=== PATIENT | male | born 1955 | race Caucasian/White ===

== ENCOUNTER 2023-04-26 11:12 | Emergency (ER) | payer MEDICARE, SELFPAY ==
[2023-04-26 11:33] VITALS: BP 137/70; PULSE 86; RESP 18; TEMP 37.3; O2SAT 97
--- NOTE | 2023-04-26 11:42 | ED.SKABFB ---
HPI - Skin/Abscess/Foreign Bdy General Chief complaint: Skin/Abscess/Foreign Body Stated complaint: Left Armpit Bump Time Seen by Provider: 04/26/23 11:43 Source: patient Mode of arrival: ambulatory Limitations: no limitations History of Present Illness HPI narrative: 68-year-old male presents with complaint of bump to left armpit for several months. States that is getting progressively larger and is more painful the last few days. Denies redness. Afebrile. Reports that to rubbing against his left upper arm causing increased annoying and and pain. Has not seen his primary care physician for this problem. All systems reviewed and negative except as noted above. Related Data Home Medications Medication Instructions Recorded Confirmed aspirin 81 mg tablet,delayed 81 mg PO DAILY 12/25/19 01/18/23 release (Adult Low Dose Aspirin) cholecalciferol (vitamin D3) 50 50 mcg PO DAILY 04/28/21 01/18/23 mcg (2,000 unit) tablet Allergies Allergy/AdvReac Type Severity Reaction Status Date / Time tetracycline Allergy Unknown Hives Verified 04/26/23 11:31 Review of Systems Review of Systems: CONSTITUTIONAL: Denies fever, chills, or sweats. EYES: Denies visual changes, redness, or discharge. ENT: Denies rhinorrhea, congestion, sore throat, or otalgia. CARDIOVASCULAR: Denies chest pain, palpitations, or edema. RESPIRATORY: Denies cough or dyspnea. GASTROINTESTINAL: Denies abdominal pain, nausea, vomiting, or diarrhea. GENITOURINARY: Denies dysuria or hematuria. SKIN: Denies rash or itching. Reports bump to left armpit. MUSCULOSKELETAL: Denies back pain, joint pain, or myalgia. NEUROLOGIC: Denies headache, numbness, or weakness. PSYCHIATRIC: Denies anxiety or depression. All other systems reviewed are negative, except as documented in HPI. [facility] Past Medical History Medical History (Updated 04/26/23 @ 12:27 by Daphney Membreno NP) Abnormal LFTs BMI 38.0-38.9,adult BMI 39.0-39.9,adult Body mass index (BMI) 40.0-44.9, adult Bruit Chronic neck pain Contact dermatitis due to plant Cough DJD (degenerative joint disease), multiple sites Elevated homocysteine Encounter for preventive health examination Encounter for routine adult health examination without abnormal findings Follow up Herpes, genital Left elbow pain Loose stools Low back pain Nasal folliculitis Neck pain On intermission coordinator drug therapy HEMANTH on CPAP Parotitis Right shoulder pain Sialoadenitis of submandibular gland Sialolith Stress Superficial thrombophlebitis Throat pain Vitamin D deficiency Family History Family History Other Family history of cardiovascular disease Social History Social History Smoking status: Former smoker Smoking end date: 10/16/09 Alcohol intake: current Lack of Transportation: YES Lack of Food: Never True Current Housing: I Have Housing Concerned About Future Housing: Decline to Answer Difficulty Paying Gas/Electric Bills: Decline to Answer Difficulty Paying for Meds: Decline to Answer Currently Unemployed: Decline to Answer Education: Don't Know Difficulty w/ Childcare or Family Care: Decline to Answer Living arrangements: with family Occupation/Education: occupation Gender identity (if verbalized by the patient): Male Comments At time of signature, agree with nursing past medical, surgical, social and family history. There is no relevant family history pertinent to the presenting complaint. Exam Narrative: GENERAL: This is a well-nourished, well-developed patient, in no apparent distress. HEAD: normocephalic, atraumatic. EYES: PERRL. Sclera clear/white. Vision is grossly intact. EARS: External ears normal NOSE: External nose normal . NECK: Neck supple, non-tender without lymphadenopathy, masses or thyromegaly. CARDIOVASCULAR: Regular rate and rhythm without m
== END 2023-04-26 12:33 | disposition home or self-care (01) ==
PROVIDERS: Emergency Provider Nurse Practitioner Family; PCP Internal Medicine
DX: L72.3 Sebaceous cyst (principal); Z87.891 Personal history of nicotine dependence; G47.33 Obstructive sleep apnea (adult) (pediatric); M15.9 Polyosteoarthritis, unspecified; Z86.72 Personal history of thrombophlebitis
CPT/HCPCS: 10060; 87070; 87075; 87205; 99213; G0463

== ENCOUNTER 2023-11-27 15:32 | Emergency (ER) | payer MEDICARE, SELFPAY ==
[2023-11-27 15:51] VITALS: BP 152/57; PULSE 80; RESP 16; TEMP 36.6; O2SAT 97
--- NOTE | 2023-11-27 16:28 | ED.EAR ---
HPI - Ear Problem General Chief complaint: Ear Stated complaint: Left Ear Irritation Time Seen by Provider: 11/27/23 16:34 Source: patient and RN notes reviewed Mode of arrival: ambulatory Limitations: no limitations History of Present Illness HPI Narrative: 68-year-old male presents with concern for ear wax impaction left ear. Reports he went to get a hearing test and was told his your had wax in it. Reports he tried to clean at home without success. He denies pain. MD Complaint: decreased hearing Related Data Home Medications Medication Instructions Recorded Confirmed aspirin 81 mg tablet,delayed 81 mg PO DAILY 12/25/19 11/27/23 release (Adult Low Dose Aspirin) cholecalciferol (vitamin D3) 100 100 mcg PO DAILY 06/06/23 11/27/23 mcg (4,000 unit) tablet multivitamin 1 tablet PO DAILY 10/06/23 11/27/23 psyllium husk 0.52 gram capsule 0.52 g PO DAILY 10/06/23 11/27/23 (Daily Fiber) Allergies Allergy/AdvReac Type Severity Reaction Status Date / Time tetracycline Allergy Unknown Hives Verified 11/27/23 16:00 Review of Systems Review of Systems: CONSTITUTIONAL: Denies malaise, chills, sweats, or fever. EYES: Denies visual changes, redness, or discharge. ENT: Denies rhinorrhea, congestion, sinus pain, and sore throat. Reports wax impaction left ear CARDIOVASCULAR: Denies chest pain, palpitations, or edema. RESPIRATORY: Denies cough. Denies dyspnea. GASTROINTESTINAL: Denies abdominal pain, nausea, vomiting, diarrhea SKIN: Denies rash or itching. MUSCULOSKELETAL: Denies myalgia. NEUROLOGIC: Denies headache. All systems reviewed & are unremarkable except as noted in HPI and below PMFSH Past Medical History Medical History (Updated 11/27/23 @ 16:44 by Alexia Zapata NP) Abnormal LFTs BMI 38.0-38.9,adult BMI 39.0-39.9,adult Body mass index (BMI) 40.0-44.9, adult Bruit Chronic neck pain Contact dermatitis due to plant Cough DJD (degenerative joint disease), multiple sites Elevated homocysteine Encounter for Medicare annual wellness exam Encounter for preventive health examination Encounter for routine adult health examination without abnormal findings Follow up Herpes, genital Left elbow pain Loose stools Low back pain Nasal folliculitis Neck pain 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 on CPAP Parotitis Right shoulder pain Sialoadenitis of submandibular gland Sialolith Stress Superficial thrombophlebitis Throat pain Vitamin D deficiency Welcome to Medicare preventive visit Family History Family History Other Family history of cardiovascular disease Social History Social History Smoking status: Former smoker Smoking end date: 10/16/09 Alcohol intake: current Lack of Transportation: YES Lack of Food: Never True Current Housing: I Have Housing Concerned About Future Housing: Decline to Answer Difficulty Paying Gas/Electric Bills: Decline to Answer Difficulty Paying for Meds: Decline to Answer Currently Unemployed: Decline to Answer Education: Don't Know Difficulty w/ Childcare or Family Care: Decline to Answer Living arrangements: with family Occupation/Education: occupation Gender identity (if verbalized by the patient): Male Comments At time of signature, agree with nursing past medical, surgical, social and family history. There is no relevant family history pertinent to the presenting complaint Exam Narrative: GENERAL: Well-appearing, well-nourished, and in no acute distress. HEAD: Normocephalic EYES: PERRLA, conjunctivae clear ENT: Nares clear. Mucous membranes moist. TM pearly hines with sharp light reflex on the right, not visible on the left due to wax impaction; no tragal tenderness. Oropharynx not erythematous without lesions. Tonsils not enlarged and without exudate, no drooling, no hoarseness, no trismus, uvula midline. NECK: Supple. No lym
== END 2023-11-27 17:10 | disposition home or self-care (01) ==
PROVIDERS: Emergency Provider Nurse Practitioner; PCP Internal Medicine
DX: H61.22 Impacted cerumen, left ear (principal); Z87.891 Personal history of nicotine dependence; G47.33 Obstructive sleep apnea (adult) (pediatric); M15.9 Polyosteoarthritis, unspecified
CPT/HCPCS: 69209; 99212; G0463

== ENCOUNTER 2024-03-07 09:11 | Emergency (ER) | payer MEDICARE, SELFPAY ==
--- NOTE | 2024-03-07 09:13 | ED.EAR ---
HPI - Ear Problem General Chief complaint: Ear Stated complaint: Right Ear Irritation Time Seen by Provider: 03/07/24 09:13 Source: patient Mode of arrival: ambulatory Limitations: no limitations History of Present Illness HPI Narrative: Mitesh is a 68-year-old male patient presenting to the clinic today with complaints of right ear pain/discomfort. He reports this has been ongoing for 3-5 days now. Is having tenderness to palpation of the external ear as well as decreased hearing. Has recently started using a hearing aid in that ear-started 1 month ago. Denies any fever, chills, body aches, cough, congestion, or runny nose. Related Data Home Medications Medication Instructions Recorded Confirmed aspirin 81 mg tablet,delayed 81 mg PO DAILY 12/25/19 03/07/24 release (Adult Low Dose Aspirin) cholecalciferol (vitamin D3) 100 100 mcg PO DAILY 06/06/23 03/07/24 mcg (4,000 unit) tablet multivitamin 1 tablet PO DAILY 10/06/23 03/07/24 psyllium husk 0.52 gram capsule 0.52 g PO DAILY 10/06/23 03/07/24 (Daily Fiber) Allergies Allergy/AdvReac Type Severity Reaction Status Date / Time tetracycline Allergy Intermediate Hives Verified 03/07/24 09:29 Review of Systems Review of Systems: Pertinent positives per HPI. Patient denies any fever, chills, rash, headache, visual changes, dizziness, cough, shortness of breath, chest pain, palpitations, nausea, vomiting, diarrhea, constipation, abdominal pain, or any urinary issues. [facility] Past Medical History Medical History Abnormal LFTs BMI 38.0-38.9,adult BMI 39.0-39.9,adult Body mass index (BMI) 40.0-44.9, adult Bruit Chronic neck pain Contact dermatitis due to plant Cough DJD (degenerative joint disease), multiple sites Elevated homocysteine Encounter for Medicare annual wellness exam Encounter for preventive health examination Encounter for routine adult health examination without abnormal findings Follow up Herpes, genital Left elbow pain Loose stools Low back pain Nasal folliculitis Neck pain On [facility] drug therapy HEMANTH on CPAP Parotitis Right shoulder pain Sialoadenitis of submandibular gland Sialolith Stress Superficial thrombophlebitis Throat pain Vitamin D deficiency Welcome to Medicare preventive visit Family History Family History Mother , CVA/ASHD at 92 in 01/2024 No problems noted. Other Family history of cardiovascular disease Social History Social History Smoking status: Former smoker Smoking end date: 10/16/09 Alcohol intake: current Lack of Transportation: YES Lack of Food: Never True Current Housing: I Have Housing Concerned About Future Housing: Decline to Answer Difficulty Paying Gas/Electric Bills: Decline to Answer Difficulty Paying for Meds: Decline to Answer Currently Unemployed: Decline to Answer Education: Don't Know Difficulty w/ Childcare or Family Care: Decline to Answer Living arrangements: with family Occupation/Education: occupation Gender identity (if verbalized by the patient): Male Comments At the time of my signature, I reviewed and agree with the nursing past medical, surgical, social, and family history. There is no relevant family history pertinent to the patient complaint. Exam Narrative: General: Well-developed, obese, in no apparent distress Head: Normocephalic, atraumatic Eyes: Pupils equally round and reactive to light bilaterally, EOM intact, sclera and conjunctive clear, no discharge, lids normal Ears: TMs intact and opaque, swelling and redness noted to the left ear canal without drainage, tenderness to palpation over the right tragus and pulling of the pinna, right ear canal clear, no drainage, grossly hearing normal. Nose: Nares patent, no discharge, no inflammation, no si
[2024-03-07 09:20] VITALS: BP 129/71; PULSE 69; RESP 16; TEMP 36.8; O2SAT 98
== END 2024-03-07 09:35 | disposition home or self-care (01) ==
PROVIDERS: Emergency Provider Nurse Practitioner Family; PCP Internal Medicine
DX: H60.311 Diffuse otitis externa, right ear (principal); Z87.891 Personal history of nicotine dependence; G47.33 Obstructive sleep apnea (adult) (pediatric); E55.9 Vitamin D deficiency, unspecified; M15.9 Polyosteoarthritis, unspecified; Z79.82 Long term (current) use of aspirin
CPT/HCPCS: 99213; G0463

== ENCOUNTER 2024-12-04 09:07 | Outpatient (CLI) | payer MEDICARE, SELFPAY ==
--- NOTE | ~2024-12-04 | NM_ITS ---
EXAMINATION: NM albertina stress w perfusion DATE: 12/04/2024 11:42 INDICATION: Abnormal findings on diagnostic imaging TECHNIQUE: Rest images were obtained following intravenous administration of 9 mCi Tc99m tetrofosmin (Myoview). The patient was infused intravenously with Lexiscan (Regadenoson). Then, 30.9 mCi Tc99m te trofosmin (Myoview) was administered intravenously, and stress images were obtained in both the supin e and prone positions. Data was reconstructed into short axis and horizontal and vertical long axis S PECT images. Gated SPECT images were also obtained. COMPARISON: None. FINDINGS: There is no definite reversible or fixed perfusion abnormality to suggest ischemia or infar ction. There is normal left ventricular chamber size, wall motion and ejection fraction. Left ventr icular ejection fraction measures >70%. IMPRESSION: 1. Normal myocardial perfusion at rest and during stress. 2. Left ventricular ejection fraction measuring >70%. Reviewed, dictated and finalized at location A. ON PICKER OPERATOR
--- OUTSIDE RECORDS SUMMARY | 2024-12-04 09:14 | XMS_ITS | Clinical Summary ---
Author Organization [facility] Healthcare Address [address] [place] [address] Care Team Providers Care Comic Book Writer Name Role Phone Redd Melendrez MD Primary Care Provider [phone] Atif Florentino DPT Unavailable [phone] Allergies Active Allergy Reactions Criticality Noted Date Comments Tetracyclines Rash Medium 03/29/2018 Medications fenofibrate choline (TRILIPIX) 135 mg capsuleIndications :hypercholesterole randell Take 1 capsule (135 mg total) by mouth every morning 8 Active glimepiride (AMARYL) 2 mg tabletIndications: type 2 diabetes mellitus Take 1-2 tablets (2-4 mg total) by mouth 2 (two) times a day 2 tablet in am 1 tablet in PM 8 Active lisinopril (PRINIVIL,ZESTRIL) 20 mg tabletIndications: hypertension Take 1 tablet (20 mg total) by mouth every morning 8 Active omeprazole (PriLOSEC) 20 mg capsuleIndications :Treatment of Non-Bleeding Gastric Disorder Take 1 capsule (20 mg total) by mouth 2 (two) times a day 8 Active rosuvastatin (CRESTOR) 20 mg tabletIndications: hyperlipidemia Take 1 tablet (20 mg total) by mouth scraper loader operator before breakfast 9 Active aspirin 81 MG oral suspensionIndicati ons:heart health Take 81 mL (81 mg total) by mouth scraper loader operator before breakfast 1 Active FreeStyle Feroz 14 Day Sensor kit 1 Active icosapent ethyL (VASCEPA) 1 gram capsuleIndications :hypertriglyceride randell Take 2 capsules (2 g total) by mouth 2 (two) times a day 0 Active multivitamin capsuleIndications :Vitamin Deficiency Prevention Take 1 capsule by mouth scraper loader operator before breakfast Active Janumet XR 100-1,000 mg tablet, ER multiphase 24 hrIndications:type 2 diabetes mellitus Take 1 tablet by mouth every morning 2 Active niacin ER (NIASPAN) 1,000 mg CR tabletIndications: mixed hyperlipidemia Take 1 tablet (1,000 mg total) by mouth nightly 2 Active acetaminophen (TYLENOL) 500 mg tablet Take 2 tablets (1,000 mg total) by mouth every 6 (six) hours as needed for pain Active ibuprofen (ADVIL,MOTRIN) 200 mg tab/cap Take 2 tablet/capsule (400 mg total) by mouth every 6 (six) hours as needed for pain Active Farxiga 10 mg tabletIndications: type 2 diabetes mellitus Take 1 tablet (10 mg total) by mouth every morning 3 Active Ozempic 2 mg/dose (8 mg/3 mL) pen injector injectionIndicatio ns:type 2 diabetes mellitus Inject 2 mg under the skin once a week Fridays 3 Active cholecalciferol (Vitamin D3) 400 unit capsule Take 1 tablet/capsule (400 Units total) by mouth every morning Active OneTouch Ultra Test strip 3 (three) times a day 3 Active OneTouch Ultra2 Meter misc 3 (three) times a day 3 Active rosuvastatin (CRESTOR) 40 mg tablet Take 1 tablet (40 mg total) by mouth daily 3 Active OneTouch Delica Plus Lancet 33 gauge misc 3 (three) times a day 3 Active azelastine (ASTELIN) 137 mcg (0.1 %) nasal spray Administer 2 sprays into each nostril 2 (two) times a day 4 Active sildenafiL (VIAGRA) 100 mg tablet 4 Active Active Problems Problem Noted Date Diagnosed Date Rupture of left distal biceps tendon 03/17/2023 Neck pain on left side 09/22/2022 Arthritis of right acromioclavicular joint 08/01 Overview (08/01/2022): Added automatically from request for surgery [id number] Subacromial bursitis of right shoulder joint Overview (08/01/2022): Added automatically from request for surgery [id number] Traumatic incomplete tear of right rotator cuff 08/01/2022 Overview (08/01/2022): Added automatically from request for surgery [id number] History of colon polyps 05/28/2021 Overview (05/28/2021): Added automatically from request for surgery [id number] Screening for malignant neoplasm of colon 2020 Overview (05/28/2021): Added automatically from request for surgery [id number] Osteoarthritis of left knee 01/02/2018 Osteoarthritis of right knee 11/07/2017 Abscess of axilla 12/15/2016 Knee pain 06/29/2015 Arthritis 05/08/2012 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 Hypertension 05/08/2012 Hiatal hernia 05/08/2012 Dizziness 05/08/2012 Cervical radiculopathy 04/25/2012 Diabetes mellitus 04/25/2012 Herniated cervical intervertebral disc 2 Sebaceous cyst 07/28/2011 Encounters Date Type Department Care Team Description 11/08/2024 Telephone [facility] Cardiology [address] [place] [address] [place] [address] Anila Roberts New Patient from Last 3 Months Immunizations Immunization Administration Dates Next Due Influenza, Unspecified 10/14/2013,08/27/2012 Pfizer SARS-CoV-2 Monovalent Vaccination (12+ Yrs) PURPLE 08/07/2021 ZOSTER Recombinant 03/31/2023,12/23/2022 Surgical History Surgery Date Site/Laterality Comments COLONOSCOPY CYST REMOVAL 10/16/2016 - 10/15/2017 sebacious cyst left chest NV ALEGRIA W/O FACETEC FORAMOT/DSC / VRT SGM CRV 10/16/2008 - 10/15/2009 Laminectomy Lumbar - (Added by TW Conv) FLUORO GUIDED ASPIRATION OR INJECTION INTERMEDIATE JOINT RIGHT 11/05/2020 Right TOTAL KNEE ARTHROPLASTY 10/16/2017 - 10/15/2018 Right FLUORO GUIDED INJECTION SHOULDER RIGHT 11/25/2021 Right VASECTOMY 10/16/1993 - 10/15/1994 FINGER SURGERY 10/16/2021 - 10/15/2022 trigger finger injection JOINT REPLACEMENT SPINE SURGERY SHOULDER SURGERY 08/16/2022 - 09/14/2022 Medical History Medical History Date Comments Diabetes mellitus (HCC) not insu olivia dependent Hypertension HEMANTH (obstructive sleep apnea) us ing cpap Hiatal hernia not bothering pt at this time Low testosterone Hyperlipidemia GERD (gastroesophageal reflux disease) well controlled Arthritis 10/16/2011 ELY SHOSHONE (hard of hearing) no aids Tinnitus Clotting disorder (CMS/HCC) (HCC) PT DENIES Family History Medical History Relation Name Comments Crohn's disease Daughter Family histo ry of Crohn's disease - (Added by TW Conv) Aortic aneurysm Father Arthritis Mother Izabela Diabetes Mother Izabela Heart attack Mother Izabela Heart disease Mother Izabela Family history of cardiac disorder - (Added by TW Conv) Stroke Mother Izabela Diabetes Other 1 Diabetes Mellit us - (Added by TW Conv) Heart disease Other 2 Heart Disease - (Added by TW Conv) Hypertension Other 3 Hypertension - (Added by TW Conv) Stroke Other 4 Stroke Syndrome - (Added by TW Conv) Diabetes Other 5 Family history of diabetes mellitus - (Added by TW Conv) Diabetes Son Geovani Cardona Family history of diabetes mellitus - (Added by TW Conv) Relation Name Status Comments Daughter Father Mother Izabela Alive Other 1 Other 2 Other 3 Other 4 Other 5 Son Geovani Cardona Social History Tobacco Use Types Packs/Day Years Used Date Smoking Tobacco: Former Cigarettes 0.3 38 0 10/16/1965 - 10/16/2003 Cigars Smokeless Tobacco: Never Tobacco Cessation:Counseling Given: Not Answered Comments:Occasional cigar Alcohol Use Standard Drinks/Week Comments Yes 2 (1 standard drink = 0.6 oz pur e alcohol) Occasionally AUDIT-C Answer Date Recorded Q1: How often do you have a drink containing alc ohol? Monthly or less 03/17/2023 Q2: How many drinks containi ng alcohol do you have on a typical day when you are drinking? 7 to 9 03/17/2023 Q3: How often do you have si x or more drinks on one occasion? Less than monthly 03/17/2023 PHQ-2 Answer Date Recorded PHQ-2 Total Score (If total score is 3 or more points, staff should administer the PHQ-9) 0 12/30/2021 Personal Safety Answer Date Recorded Have you ever been in or are you currently in a harmful physical or emotional relationship or is someone making you feel afraid or unsafe? Denies 03/22/2023 Sex and Gender Information Value Date Recorded Sex Assigned at Not on file Legal Sex Male 10:11 PM PROCESSES CHEMICAL DESIGN ENGINEER Gender Identity Male 06/03/2019 6:56 AM CDT Sexual Orientation Choose not to disclose 2021 10:22 AM PROCESSES CHEMICAL DESIGN ENGINEER Obstetrics History Last Filed Vital Signs Vital Sign Reading Time Taken Comments Blood Pressure 147/67 03/22/2023 12:30 PM CDT Pulse 66 03/22/2023 12:40 PM CDT Temperature 36.5 C (97.7 F) 03/22/2023 11:31 AM CDT Respiratory Rate 14 03/22/2023 12:4 0 PM CDT Oxygen Saturation 93% 03/22/2023 12: 40 PM CDT Inhaled Oxygen Concentration - - Weight 128.2 kg (282 lb 9.6 oz) 03/22/2023 8:50 AM CDT Height 184.2 cm (6' 0.5 ) 03/22/2023 8:50 AM CDT Body Mass Index 37.8 03/22/2023 8:50 AM CDT Plan of Treatment Health Maintenance Due Date Last Done Comments Albumin Creatinine Ratio, Urine 1955 Hepatitis C Screening 1955 Dilated Eye Exam 1955 Foot Exam 1955 Pneumococcal vaccine 65+ (1 of 2 - PCV) 1959 DTaP/Tdap/Td Vaccine (1 - Tdap) 1964 Hepatitis B Screening 1971 Abdominal Aortic Aneurysm (A AA) Screen 2018 Well Visit 65+ 2018 Depression Screening 12/30/2022 12/30/2021, 12/31/19 22 Hemoglobin A1C 01/18/2023 07/20/2022, 01/14, 04/23/2021, Additional history exists Lipid Panel 07/20/2023 07/20/2022, 01/14, 04/23/2021, Additional history exists eGFR 07/20/2023 07/20/2022, 01/28/2022 Fall Risk Assessment 03/22/2024 03/22/2023 Covid-19 Vaccine (2023-2 5 season) 2024 08/07/2021, 11/25/2020, 11/04/2020 Influenza Vaccine (#1) 2024 10/14/2013, 2011 Colon Cancer Screening-Colonoscopy 08/20/2031 08/20/2021 Prostate Cancer Screening-PSA Discontinued , 05/11/2020, 05/07/2019, Additional history exists Colon Cancer Screening-CT Colonography Discontinued 08/20/2021 Colon Cancer Screening-DNA Stool Discontinued 08/20/20 Colon Cancer Screening-FIT Discontinued 08/20/2021 Colon Cancer Screening-Sigmoidoscopy Discontinued 08/20/2021 Zoster Vaccine Completed 03/31/2023, 12/23/2022 Medical Devices Implanted Type Area Application Infrastructure Engineer Device Identifier Shelf Expiration Date Model / Serial / Lot [employer] 6197-9-010 Simplex P Full Dose Radiopaque Preblend Cement Bone Tobramycin - [id number] Implanted:Qty: 1 on 05/04/2018 by Jericho Henderson MD at [facility] [id number] 06/15/2019 6197-9-01 0 / / [employer] 6191-1-010 Simplex P Radiopaque Full Dose Cement Bone Sterile - [id number] Implanted:Qty: 1 on 05/04/2018 by Jerciho Henderson MD at [facility] [employer] [id number] 07/15/2020 6191-1-01 0 / / [employer] [id number] Evolution Mp Keel Right 7 Standard Baseplate Tibial Nonporous - [id number] Implanted:Qty: 1 on 05/04/2018 by Jericho Henderson MD at [facility] [employer] 01/30/2026 [id number] / / [employer] [id number] Evolution Mp 12mm Cruciate Substitute Knee Right 7 Standard - [id number] Implanted:Qty: 1 on 05/04/2018 by Jericho Henderson MD at [facility] [employer] 10/15/2021 [id number] / / [employer] [id number] Evolution Mp Primary Cruciate Retaining Cruciate Sustain Knee - [id number] Implanted:Qty: 1 on 05/04/2018 [facility] 09/01/2025 [id number] / / [employer] [id number] Advance 38mm 10mm 3 Peg Onlay Component Patellar All Poly - [id number] Implanted:Qty: 1 on 05/04/2018 by Jericho Henderson MD at [facility] 05/08/2025 [id number] / / [employer] Corkscrew Fiberwire 3.5mm 12mm Self Tap Eyelet Handle Windows Application Packager [id number] - [id number] Implanted:Qty: 1 on 03/22/2023 by Blake Jackson MD at [facility] [place] Left: Arm [employer] 10/15/2027 [id number] / / [id number] [employer] Corkscrew Fiberwire 3.5mm 12mm Self Tap Eyelet Handle Windows Application Packager [id number] - [id number] Implanted:Qty: 1 on 03/22/2023 by Blake Jackson MD at [facility] [place] Left: Arm [employer] 10/15/2027 [id number] / / [id number] Procedures Procedure Name Priority Date/Time Associated Diagnosis Comments EGFR Routine 07/20/2022 8:09 AM CDT HEMOGLOBIN A1C Routine 07/20/2022 8:09 AM CDT LIPID PANEL Routine 07/20/2022 8:09 AM CDT COLONOSCOPY 08/20/2021 11:29 AM CDT PSA DIAGNOSTIC Routine 06/07/2021 5:05 PM CDT from Last 3 Months or Most Recently Relevant to Health Maintenance Results * (ABNORMAL) eGFR (07/20/2022 8:09 AM CDT) eGFR 82(L) 90 - 130 mL/min/1. 73 m2 [facility] Comment: Interpretive Data Reference Interval Normal >/= 90 mL/min/1.73m2 Mildly decreased* 60 - 89 mL/min/1.73m2 Mildly to moderately decreased 45 - 59 mL/min/1.73m2 Moderately to severely decreased 30 - 44 mL/min/1.73m2 Severely decreased 15 - 29 mL/min/1.73m2 Kidney Failure < 15 mL/min/1.73m2 *Relative to young adult level Estimated glomerular filtration rate is determined by the 2020 CKD-EPI equation recommended by the National Kidney Foundation (A Unifying Approach to GFR Estimation: Recommendations of the NKF-ASK Task Force on Reassessing the Inclusion of Race in Diagnosing Kidney Disease, JASN 2020). The CKD-EPI equation should not be used for patients with unstable renal function and has not been validated in children and those over 70. Current interpretive data was last reviewed 2021. Blood 07/20/2022 8:09 AM CDT 07/20/2022 9:38 AM CDT Redd Melendrez MD LAB BLOOD ORDERABLES Final Re sult [facility] [address] [facility] Department of Laboratories [place], [place] [id number] * (ABNORMAL) Hemoglobin A1c (07/20/2022 8:09 AM CDT) Hgb A1C 8.2(H) 4.0 - 5.6 % [facility] Estimated Average Glucose 189 mg/dL [facility] Comment: The ADA recommends reporting an estimated Average Glucose (eAG) with all Hemoglobin A1c results using the equation derived from a study of 507 normal and diabetic adults. Minority populations were underrepresented and children were not included. (Diabetes Care 2020; 43(S1): S66-S76). The eAG is not equivalent to a fasting glucose. Blood 07/20/2022 8:09 AM CDT 07/20/2022 9:40 AM CDT us Redd Melendrez MD LAB BLOOD ORDERABLES Final Re sult [facility] [address] [facility] [place] [address] * (ABNORMAL) Lipid panel (07/20/2022 8:09 AM CDT) Cholesterol 157 30 - 199 mg/dL [facility] Comment: Interpretive Data Ages < or = 19 years Acceptable: <170 mg/dL Borderline high: 170-199 mg/dL High: >or= 200 mg/dL Ages > or = 20 years Desirable: <200 mg/dL Borderline high: 200-239 mg/dL High: >or= 240 mg/dL Literature References: 1. Expert Panel on Integrated Guidelines for Cardiovascular Health and Risk Reduction in Children and Adolescents. Pediatrics 2011;128:S213 2. NCEP Expert Panel. Circulation 2004;110:227 Current Interpretive Data was last revised on 2018. Triglycerides 196(H) <=149 mg/dL [facility] Comment: Interpretive Data Ages < or = 9 years Acceptable: <75 mg/dL Borderline high: 75-99 mg/dL High: >or= 100 mg/dL Ages 10 to 20 years Acceptable: <90 mg/dL Borderline high: 90-129 mg/dL High: >or= 130 mg/dL Ages > or = 20 years Desirable: <150 mg/dL Borderline high: 150-199 mg/dL High: 200-499 mg/dL Very high: >or= 499 mg/dL Literature References: 1. Expert Panel on Integrated Guidelines for Cardiovascular Health and Risk Reduction in Children and Adolescents. Pediatrics 2011;128:S213 2. NCEP Expert Panel. Circulation 2004;110:227 Current Interpretive Data was last revised on 2018. HDL 33(L) >=40 mg/dL [facility] Comment: Interpretive Data Ages < or = 19 years Acceptable: >45 mg/dL Borderline low: 40-45 mg/dL Low: <40 mg/dL Ages > or = 20 years Desirable: >or= 60 mg/dL Low: <40 mg/dL Literature References: 1. Expert Panel on Integrated Guidelines for Cardiovascular Health and Risk Reduction in Children and Adolescents. Pediatrics 2011;128:S213 2. NCEP Expert Panel. Circulation 2004;110:227 Current Interpretive Data was last revised on 2018. LDL, calculated 85 <=129 mg/dL [facility] Comment: Interpretive Data Ages < or = 19 years Acceptable: <110 mg/dL Borderline high: 110-129 mg/dL High: >or= 130 mg/dL Ages > or = 20 years Optimal: <100 mg/dL Near optimal: 100-129 mg/dL Borderline high: 130-159 mg/dL High: >160 mg/dL Literature References: 1. Expert Panel on Integrated Guidelines for Cardiovascular Health and Risk Reduction in Children and Adolescents. Pediatrics 2011;128:S213 2. NCEP Expert Panel. Circulation 2004;110:227 Current Interpretive Data was last revised on 2018. Non-HDL Cholesterol 124 mg/dL [facility] Comment: Interpretive Data Ages < or = 19 years Acceptable: <120 mg/dL Borderline high: 120-144 mg/dL High: >145 mg/dL Ages > or = 20 years When triglycerides are >200 mg/dL, Non-HDL cholesterol is a secondary target of therapy with treatment goals that are 30 mg/dL greater than the LDL cholesterol target. Literature References: 1. Expert Panel on Integrated Guidelines for Cardiovascular Health and Risk Reduction in Children and Adolescents. Pediatrics 2011;128:S213 2. NCEP Expert Panel. Circulation 2004;110:227 Current Interpretive Data was last revised on 2018. Chol/HDL ratio 5 [facility] Blood 07/20/2022 8:09 AM CDT 07/20/2022 9:38 AM CDT us Redd Melendrez MD LAB BLOOD ORDERABLES Final Re sult [facility] Department [place] [address] * COLONOSCOPY (08/20/2021 11:29 AM CDT) Anatomical Region Laterality Modality Other Narrative Procedure Note Blake Gonzáles MD - 08/20/2021 11:29 AM CDT ENDOSCOPY LAB Patient Name: Geovani Cardona Procedure Date: 08/20/2021 11:29 AM Date of : 1955 Admit Type: Outpatient Age: 66 Gender: Male Attending MD: Blake Gonzáles M.D. Room: [facility] ENDOSCOPY ROOM 02 Note Status: Finalized Procedure: Colonoscopy Indications: Screening for colorectal malignant neoplasm, Last colonoscopy: 2010 Providers: Blake Gonzáles M.D. Referring MD: Redd Melendrez M.D. Medicines: Propofol per Anesthesia Complications: No immediate complications. Estimated blood loss: Minimal. Estimated Blood Loss: Estimated blood loss was minimal. Procedure: Pre-Anesthesia Assessment: - Immediately prior to administration ofmedications, the patient was re-assessed for adequacy to receive sedatives. - Sedation was administered by an anesthesia professional. General anesthesia was attained. - The physical status of the patient wasre-assessed after the procedure. The benefits, risks and alternatives of theprocedure and sedation were discussed and informed consentwas obtained. All questions were answered. Please referto the signed informed consent document in the medical record. The scope was passed under direct vision.The [id number] was introduced through the anusand advanced to the cecum, identified by appendiceal orifice and ileocecal valve. The colonoscopy was performed with ease. The patient tolerated the procedure well. The quality of the bowelpreparation was excellent. The quality of the bowel preparation was evaluated using the BBPS (Basin BowelPreparation Scale) with scores of: Right Colon = 3, Transverse Colon = 3 and Left Colon = 3 (entire mucosa seenwell with no residual staining, small fragments of stoolor opaque liquid). The total BBPS score equals 9.Bowel prep was administered using a split dose. Findings: A 8 mm polyp was found in the transverse colon. The polyp was removed with a cold biopsy forceps. Resection and retrieval were complete. Estimated blood loss was minimal. Impression: - One 8 mm polyp in the transverse colon, removedwith a cold biopsy forceps. Resected and retrieved. Recommendation: - Await pathology results. - Repeat colonoscopy in 5 years for surveillance. Electronically signed by Dr.Matthew Eliecer M.D. Blake Gonzáles M.D. 08/20/2021 12:12:16 PM Number of Addenda: 0 Note Initiated On: 08/20/2021 11:29 AM us Blake Gonzáles MD ENDOSCOPY PROCEDURES Final R esult * PSA diagnostic (06/07/2021 5:05 PM CDT) PSA-Total 0.20 <=5.40 ng/mL [facility] Comment: Interpretive Data AGE SEX REFERENCE INTERVAL 0 minutes-150 years Female None 0 minutes-49 years Male None 50-59 years Male 0-3.90 60-69 years Male 0-5.40 70-79 years Male 0-6.20 80-150 years Male 0-6.20 Current interpretive data last revised 2018. Blood 06/07/2021 5:05 PM CDT 06/07/2021 5:16 PM CDT Redd Melendrez MD LAB BLOOD ORDERABLES Final Re sult [facility] [address] [place] [address] from Last 3 Months or Most Recently Relevant to Health Maintenance Insurance [facility] [employer] Address: [facility] [id number] [place] [address] MEDICARE [facility] Private Practice Address: [facility] [id number] [place] [address] MEDICARE MEDICARE [facility] Private Practice Address: [facility] [address] [place] [address] [address] [place] [address] MEDICARE [facility] Advance Directives For more information, please contact: [phone] * Full Code (Latest Code Status on File) Date Activated Date Inactivated Comments 08/20/2021 10:11 AM 08/20/2021 4:54 PM * Full Code Date Activated Date Inactivated Comments 05/08/2018 7:48 PM 08/20/2021 10:01 AM * Full Code Date Activated Date Inactivated Comments 05/04/2018 1:42 PM 05/05/2018 4:30 PM Care Teams Comic Book Writer Relationship Specialty Start Date End Date Redd Melendrez MD [address] [facility] [address] [place] [address] PCP - General 12/21/16 Atif Florentino DPT [address] [facility] [address] [place] [address] Physical Therapist Physical Therapy 04/22/21
--- OUTSIDE RECORDS SUMMARY | 2024-12-04 09:14 | XMS_ITS | Clinical Summary ---
Author Organization [facility] Address [address] [place] [address] Care Team Providers Care Perinatal Technician Name Role Phone Redd Aguero MD Primary Care Provider [phone] Encounters Date Type Department Care Team Description 11/12/2024 Telephone [facility] [address], [address] [id number] Lita Brown RN Results (CT Heart Screen Calcium Score) 11/07/2024 3:06 PM BANK MANAGER - 11/07/2024 11:59 PM BANK MANAGER Hospital Encounter [place] [place] [address] Redd Aguero MD Discharge Disposition: Home or Self Care (Routine Discharge) 11/07/2024 Travel from Last 3 Months Social History Tobacco Use Types Packs/Day Years Used Date Smoking Tobacco: Never Assessed Sex and Gender Information Value Date Recorded Sex Assigned at Male 11/07/2024 3:00 PM BANK MANAGER Legal Sex Male 12:29 PM BANK MANAGER Gender Identity Not on file Sexual Orientation Not on file Plan of Treatment Health Maintenance Due Date Last Done Comments Colorectal Cancer Screening Colonoscopy (10 Years) 1955 Kidney Health Evaluation 1955 Lipid Panel 1955 Diabetes: Retinopathy Eye Exam 1971 Hepatitis C 1971 DTaP, Tdap and Td Vaccines (1 - Tdap) 1972 Annual Medicare Wellness Visit 2018 Hemoglobin A1C 01/18/2023 07/20/2022, 01/14, 04/23/2021, Additional history exists COVID-19 Vaccine ( season) 2024 04/09/2024, 08/25/2023, 11/04/2022, Additional history exists Zoster Vaccines Completed 03/31/2023, 12/23/2022 RSV Immunization or 60+ Years Completed 05/26/2023 Pneumococcal Vaccine: 65+ Years Completed 08/25/2023 Influenza Adult Completed 08/01/2024, 03/2023, 09/05/2022, Additional history exists Meningococcal B Vaccine Aged Out No l onger eligible based on patient's age to complete this topic Meningococcal Vaccine Aged Out No janis adelfo eligible based on patient's age to complete this topic RSV Immunizations Under 20 Months Aged Out No longer eligible based on patient's age to complete this topic Procedures Procedure Name Priority Date/Time Associated Diagnosis Comments CT HEART SCREEN CALCIUM SCORE PROMO Routine 11/07/2024 3:30 PM BANK MANAGER Essential (primary) hypertension Mixed hyperlipidemia Type 2 diabetes mellitus without complications ([facility]) from Last 3 Months Results * CT HEART SCREEN CALCIUM SCORE (11/07/2024 3:30 PM BANK MANAGER) Anatomical Region Laterality Modality Chest Computed Tomogra phy Impressions 11/07/2024 3:41 PM BANK MANAGER =====IMPRESSION:===== Total Score: 1037 Extensive plaque, high risk, high likelihood of significant stenosis (>50%). Ordered By: REDD AGUERO Interpreted By: Lyle Loza MD, 11/07/2024 3:41 PM Narrative 11/07/2024 3:41 PM BANK MANAGER [address] [address] EXAMINATION: Multislice Helical CT Coronary Calcium Scoring REASON FOR EXAM: Screening for heart disease COMPARISON: None TECHNIQUE: Multislice helical CT images of the proximal coronary arteries with a computer generated calcification score. A dose lowering technique was used for this procedure, which may include, but is not limited to, dose reduction technique, automated exposure control, iterative reconstruction, ALARA (As Low As Reasonably Achievable), or Image Gently techniques. Results: Left main: 26.6 LAD: 655 Circumflex: 51.5 Right coronary: 305 Total Score: 1037 Comments: There is no mediastinal adenopathy, and there are no pulmonary nodules in the visualized portions of the chest. Calcium score guidelines: Total Score* Calcium Plaque [place] *Risk *Probability of significant CAD 0 No Plaque Very Low Very unlikely 1-10 Minimal Plaque Low Unlikely 11-100 Mild Plaque Moderate Low likelihood of significant stenosis <50% 101-400 Moderate Plaque Moderately High Moderate likelihood of significant stenosis (>50%) Over 400 Extensive Plaque High High likelihood of significant stenosis (>50%) The amount of coronary artery calcification correlates with the severity of coronary atherosclerosis and the probability of future significant event. Calcification is not site specific for stenosis and does not identify non-calcified atherosclerotic plaque, but rather indicates the extent of atherosclerosis in the coronary arteries overall. The score may be used as an indicator for risk factor modification or additional cardiac testing. Significant change in calcium score over time may be indicative of subsequent disease development or useful as a benchmark to assess preventative programs. Redd Aguero MD CT Edited Result - Final from Last 3 Months Insurance [facility] MEDICARE Care Teams Perinatal Technician Relationship Specialty Start Date End Date Redd Aguero MD [address] [facility] - [facility] [address] [place] [address] PCP - General INTERNAL MEDICINE 10/29/24
--- OUTSIDE RECORDS SUMMARY | 2024-12-04 09:14 | XMS_ITS | Referral Summary ---
Author Organization [facility] Healthcare Address [address] [place] [address] Care Team Providers Care Radio Time Sales Supervisor Name Role Phone Redd Melendrez MD Primary Care Provider [phone] Atif Florentino DPT Unavailable [phone] Encounters Date Type Department Care Team Description 11/08/2024 Telephone [facility] Cardiology [address] [facility] 8th [place] [address] [place] [address] Anila Roberts New Patient from Last 3 Months Allergies Active Allergy Reactions Criticality Noted Date [...] 1 tablet (20 mg total) by mouth storage garage attendant before breakfast 9 Active aspirin 81 MG oral suspensionIndicati ons:heart health Take 81 mL (81 mg total) by mouth storage garage attendant before breakfast 1 Active FreeStyle Feroz 14 Day Sensor kit 1 Active icosapent ethyL (VASCEPA) 1 gram capsuleIndications :hypertriglyceride randell Take 2 capsules (2 g total) by mouth 2 (two) times a day 0 Active multivitamin capsuleIndications :Vitamin Deficiency Prevention Take 1 capsule by mouth storage garage attendant before breakfast Active Janumet XR 100-1,000 mg [...] (08/01/2022): Added automatically from request for surgery [id number] Subacromial bursitis of right shoulder joint Overview (08/01/2022): Added automatically from request for surgery [id number] Traumatic incomplete tear of right rotator cuff 08/01/2022 Overview (08/01/2022): Added automatically from request for surgery [id number] History of colon polyps 05/28/2021 Overview (05/28/2021): Added automatically from request for surgery [id number] Screening for malignant neoplasm of colon 2020 Overview (05/28/2021): Added automatically from request for surgery [id number] Osteoarthritis of left knee 01/02/2018 Osteoarthritis of right knee 11/07/2017 Abscess of axilla 12/15/2016 Knee pain 06/29/2015 Arthritis 05/08/2012 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 Hypertension 05/08/2012 Hiatal hernia 05/08/2012 Dizziness 05/08/2012 Cervical radiculopathy 04/25/2012 Diabetes mellitus 04/25/2012 Herniated cervical intervertebral disc 2 Sebaceous cyst 07/28/2011 Immunizations Immunization Administration Dates Next Due Influenza, Unspecified 10/14/2013,08/27/2012 Pfizer SARS-CoV-2 Monovalent Vaccination (12+ Yrs) PURPLE 08/07/2021 ZOSTER Recombinant 03/31/2023,12/23/2022 Social History Tobacco Use Types Packs/Day Years [...] on file Legal Sex Male 10:11 PM SALES STOCK ASSOCIATE Gender Identity Male 06/03/2019 6:56 AM CDT Sexual Orientation Choose not to disclose 2021 10:22 AM SALES STOCK ASSOCIATE Last Filed Vital Signs Vital Sign Reading [...] 03/22/2023 8:50 AM CDT Plan of Treatment Not on file Medical Devices Implanted Type Area Freight Hustler Device Identifier Shelf Expiration Date Model / Serial / Lot [employer] 6197-9-010 Simplex P Full Dose Radiopaque Preblend Cement Bone Tobramycin - [id number] Implanted:Qty: 1 on 05/04/[facility] [id number] 06/15/2019 6197-9-01 0 / / [employer] 6191-1-010 Simplex P Radiopaque Full Dose Cement Bone Sterile - [id number] Implanted:Qty: 1 on 05/04/2018 [facility] [id number] 07/15/2020 6191-1-01 0 / / [employer] [id number] Evolution Mp Keel Right 7 Standard Baseplate Tibial Nonporous - [id number] Implanted:Qty: 1 on 05/04/2018 by Jericho Henderson MD at [facility] [employer] 01/30/2026 [id number] / / [employer] [id number] Evolution Mp 12mm Cruciate Substitute Knee Right 7 Standard - [id number] Implanted:Qty: 1 on 05/04/2018 by Jericho Henderson MD at [facility] [employer] 10/15/2021 [id number] / / [employer] [id number] Evolution Mp Primary Cruciate Retaining Cruciate Sustain Knee - [id number] Implanted:Qty: 1 on 05/04/2018 by Jericho Henderson MD at [facility] [employer] 09/01/2025 [id number] / / [employer] [id number] 38mm 10mm 3 Peg Onlay Component Patellar All Poly - [id number] Implanted:Qty: 1 on 05/04/2018 by Jericho Henderson MD at [facility] [employer] 05/08/2025 [id number] / / [employer] Corkscrew Fiberwire 3.5mm 12mm Self Tap Eyelet Handle Bridge Carpenter [id number] - [id number] Implanted:Qty: 1 on 03/22/2023 by Blake Jackson MD at [facility] Left: Arm [employer] 10/15/2027 [id number] / / [id number] [employer] Corkscrew Fiberwire 3.5mm 12mm Self Tap Eyelet Handle Bridge Carpenter Ar-1915sf - [id number] Implanted:Qty: 1 on 03/22/2023 by Blake Jackson MD at [facility] Left: Arm [employer] 10/15/2027 [id number] / / [id number] Procedures Procedure Name Priority Date/Time Associated Diagnosis [...] 90 - 130 mL/min/1. 73 m2 [facility] Comment: Interpretive Data Reference Interval [...] MD LAB BLOOD ORDERABLES Final Re sult Performing Organization Address [facility] de Phone Number [facility] Department [place] [address] * (ABNORMAL) Hemoglobin A1c (07/20/2022 8:09 AM CDT) Hgb A1C 8.2(H) 4.0 - 5.6 % [facility] Estimated Average Glucose 189 mg/dL [facility] Comment: The ADA recommends reporting an estimated Average Glucose (eAG) with all Hemoglobin A1c results using the equation derived from a study of 507 normal and diabetic adults. Minority populations were underrepresented and children were not included. (Diabetes Care 2020; 43(S1): S66-S76). The eAG is not equivalent to a fasting glucose. Blood 07/20/2022 8:09 AM CDT 07/20/2022 9:40 AM CDT Redd Melendrez MD LAB BLOOD ORDERABLES Final Re sult Performing Organization Address [facility] Co de Phone Number [facility] Department [place] [address] * (ABNORMAL) Lipid panel (07/20/2022 8:09 AM CDT) Cholesterol 157 30 - 199 mg/dL [facility] Comment: Interpretive Data Ages < or [...] revised on 2018. Triglycerides 196(H) <=149 mg/dL [facility] Comment: Interpretive Data Ages < or [...] revised on 2018. HDL 33(L) >=40 mg/dL [facility] Comment: Interpretive Data Ages < or [...] on 2018. LDL, calculated 85 <=129 mg/dL [facility] Comment: Interpretive Data Ages < or [...] revised on 2018. Non-HDL Cholesterol 124 mg/dL [facility] Comment: Interpretive Data Ages < or [...] last revised on 2018. Chol/HDL ratio 5 [facility] Blood 07/20/2022 8:09 AM CDT 07/20/2022 9:38 AM CDT us Redd Melendrez MD LAB BLOOD ORDERABLES Final Re sult [facility] Department [place] [address] * COLONOSCOPY (08/20/2021 11:29 AM CDT) Anatomical Region Laterality Modality Other Narrative Procedure Note Blake Gonzáles MD - 08/20/2021 11:29 AM CDT ENDOSCOPY LAB Patient Name: Geovani Cardona Procedure Date: 08/20/2021 11:29 AM Date of : 1955 Admit Type: Outpatient Age: 66 Gender: Male Attending MD: Blake Gonzáles M.D. Room: [facility] ENDOSCOPY ROOM 02 Note Status: Finalized Procedure: [...] The scope was passed under direct vision.The [id number] was introduced through the anusand advanced to the cecum, identified by appendiceal orifice and ileocecal valve. The colonoscopy was performed with ease. The patient tolerated the procedure well. The quality of the bowelpreparation was excellent. The quality of the bowel preparation was evaluated using the BBPS (Chester BowelPreparation Scale) with scores of: Right Colon [...] PM CDT) PSA-Total 0.20 <=5.40 ng/mL [facility] Comment: Interpretive Data AGE SEX REFERENCE INTERVAL 0 minutes-150 years Female None 0 minutes-49 years Male None 50-59 years Male 0-3.90 60-69 years Male 0-5.40 70-79 years Male 0-6.20 80-150 years Male 0-6.20 Current interpretive data last revised 2018. Blood 06/07/2021 5:05 PM CDT 06/07/2021 5:16 PM CDT us Redd Melendrez MD LAB BLOOD ORDERABLES Final Re sult [facility] Department [place] [address] from Last 3 Months or Most Recently Relevant to Health Maintenance Insurance [employer] [facility] [employer] Address: [facility] [id number] [place] [address] MEDICARE [facility] [employer] Address: [facility] [id number] [place] [address] MEDICARE MEDICARE [facility] [employer] [employer] Address: [address] [place] [address] MEDICARE [facility] Advance Directives For more information, please contact: [phone] * Full Code (Latest Code Status on File) Date Activated Date Inactivated Comments 08/20/2021 10:11 AM 08/20/2021 4:54 PM * Full Code Date Activated Date Inactivated Comments 05/08/2018 7:48 PM 08/20/2021 10:01 AM * Full Code Date Activated Date Inactivated Comments 05/04/2018 1:42 PM 05/05/2018 4:30 PM Care Teams Radio Time Sales Supervisor Relationship Specialty Start Date End Date Redd Melendrez MD [address] [facility] [address] INTER[address] MEDICINE [place], [place] [id number] PCP - General 12/21/16 Atif Florentino, [place] [address] [address] Physical Therapist Physical Therapy 04/22/21
--- OUTSIDE RECORDS SUMMARY | 2024-12-04 09:14 | XMS_ITS | Encounter Summary ---
Author Organization [facility] Address [address] [facility] [address] [place] [address] Phone Care Team Providers Care Aix System Administrator Name Role Phone Redd Melendrez MD Primary Care Provider [phone] Atif Florentino DPT Unavailable [phone] Reason for Visit * Reason Onset Date Comments New Patient 11/08/2024 Encounter Details Date Type Department Care Team (Late st Contact Info) Description 11/08/2024 Telephone [facility] [address] [facility] 8th [place] [address] [place] [address] Anila Roberts New Patient Social History Tobacco Use Types Packs/Day Years Used Date Smoking Tobacco: Former Cigarettes 0.3 38 0 10/16/1965 - 10/16/2003 Cigars Smokeless Tobacco: Never Comments:Occasional cigar Alcohol Use Standard Drinks/Week Comments [...] on file Legal Sex Male 10:11 PM DIGITAL CAMPAIGN MANAGER Gender Identity Male 06/03/2019 6:56 AM CDT Sexual Orientation Choose not to disclose 2021 10:22 AM DIGITAL CAMPAIGN MANAGER documented as of this encounter Miscellaneous Notes * Telephone Encounter - Anila Roberts - 11/11/2024 8:14 AM CST ... TAL CAMPAIGN MANAGER * Telephone Encounter - Anila Roberts - 11/08/2024 1:50 PM CST PT SPOUSE IS ALREADY A PT OF DR. TREJO. THEY ARE CALLING TO SEE IF HE CAN BE SCHEDULED A NEW PT? TAL CAMPAIGN MANAGER * Telephone Encounter - Anila Roberts - 11/08/2024 1:45 PM CST Diagnosis/Reason for Appointment: ELEVATED CALCIUM SCORING TEST Referring Physician: SELF Ref Ph: If Referring MD is not PCP, list specialty: Triage Questions Yes No Who/Where/When/Notes Have you ever been diagnosed with cancer, or undergone cancer treatments? [] [x] If 'Yes', Schedulefirst available with Cardio-Oncology If yes where were you treated? Have you ever seen a Retail Pharmacist in an office setting? [] [x] IF SCHEDULING PATIENT WITH MATERNAL Have you had a baby in the last year or are you ? (If yes send to Dr. Stewart for review) [] [] Have you had heart or blood pressure problems during a previous ? (If yes send to Dr. Stewart for review) [] [] Dr. Pamela Mi Patients only: Are you a hemodialysis or peritoneal dialysis patient? (If yes then patient must be referred from another MD, DO NOT SCHEDULE) [] [] Do you regularly exercise, or play any competitive or recreational sports? (If yes proceed to next question) [] [] Are your symptoms or concerns associated with this exercise or activity? (If yes schedule in [facility]) [] [] Patient History Questions Yes No Where/When/Notes Have you EVER been hospitalized for ANY cardiac issue? [] [x] Have you ever had any cardiac testing, imaging, or procedures? (Testing - echo, EKG, stress) (Imaging - Cardiac MRI, CT or calcium scoring) (Procedure - Ablation, Cardioversion, CABG, Cath) [x] [] CALCIUM SCORING TEST (1036), 11/07/2024, [facility] Have you ever had a sleep study? [x] [] Do you have a device? If yes what type? (Pacemaker, Defibrillator, Implanted Loop Recorder) [] [x] If yes, where and when was device put in? Senior Product Manager? ([employer], [employer], [place]) Appointment Date: Provider: Location: [] Confirm appt date, time, provider and location. [] Advise pt to arrive 15-20 min early. [] Advise patient to bring medications/list, photo ID and insurance card [] Advise of New Patient Packet being mailed to them. TAL CAMPAIGN MANAGER documented in this encounter Plan of Treatment Not on file documented as of this encounter Visit Diagnoses Not on filedocumented in this encounter Care Teams Aix System Administrator Relationship Specialty Start Date End Date Redd Melendrez MD [address] [facility] [address] [facility] [address] [place] [address] PCP - General 12/21/16 Atif Florentino DPT [address] [facility] [address] [place] [address] Physical Therapist Physical Therapy 04/22/21 documented as of this encounter
--- NOTE | 2024-12-04 09:16 | EST_ITS ---
Patient Info Name: Mitesh Quintero Age: 69 years : 1955 Gender: Male Ht: 72 in Wt: 278 lbs BSA: 2.58 m2 HR: 74 bpm BP: 123 / 62 mmHg Exam Date: 12/04/2024 10:04 AM Exam Location: Echo Lab Patient Status: Outpatient Admit Date: 12/04/2024 Staff Ordering Physician: Redd Melendrez MD Attending Provider: Redd Melendrez MD Exercise Technologist: Kwasi DELGADO RUST Exercise Physician: Mustapha Bee DO Exam Type: CA stress albertina w NM Study Info Indications R93.8 - Abnormal findings on diagnostic imaging of other specified body structures A regadenoson stress test was performed. Summary 1. 1. Negative lexiscan stress test for ischemic ST changes by ECG criteria. 2. 2. Stable hemodynamics throughout the test. 3. 3. Nuclear scan to follow and will be reported separately. Please correlate with it. 4. 4. Patient informed of the above results. Protocol: Lexiscan Stress ECG Details Stage: REST Duration (min): 0 min : 34 sec HR (bpm): 72 SBP (mmHg): --- DBP (mmHg): --- Stage: REST Duration (min): 16 min : 14 sec HR (bpm): 78 SBP (mmHg): 123 DBP (mmHg): 62 Stage: STAGE 1 Duration (min): 1 min : 0 sec HR (bpm): 83 SBP (mmHg): 129 DBP (mmHg): 59 Stage: RECOVERY Duration (min): 1 min : 0 sec HR (bpm): 91 SBP (mmHg): 129 DBP (mmHg): 59 Stage: RECOVERY Duration (min): 1 min : 1 sec HR (bpm): 91 SBP (mmHg): 129 DBP (mmHg): 59 Rest HR: 78 bpm Peak HR: 91 bpm Rest Sys BP: 123 mmHg Peak Sys BP: 129 mmHg Max Pred HR: 149 bpm % Max Pred HR: 61 % Target HR: 127 bpm Max RPP: 11,739 bpm*mmHg Termination Reason: Completed protocol Cardiac Symptoms: Shortness of breath Total Time: 1 min : 0 sec Rest Toth BP: 62 mmHg Peak Toth BP: 59 mmHg Total Dose: 0.4 mg Resting ECG SInus rhythm, low voltage in diffuse leads. Stress ECG No ST changes. Arrhythmias None. Report Signatures
== END 2024-12-04 09:08 | disposition home or self-care (01) ==
PROVIDERS: PCP Internal Medicine; Visit Provider Internal Medicine
DX: R93.89 Abnormal findings on diagnostic imaging of other specified body structures (principal); R07.9 Chest pain, unspecified
CPT/HCPCS: 78452; 93017; A9502; J2785

== ENCOUNTER 2025-01-13 12:51 | Outpatient (CLI) | payer MEDICARE, SELFPAY ==
--- NOTE | ~2025-01-13 | US_ITS ---
EXAMINATION: US carotid duplex BI DATE: 01/13/2025 13:46 INDICATION: Carotid occlusion. TECHNIQUE: Grayscale, color Doppler, and pulsed Doppler images of the cervical carotid arteries were obtained. The degree of vessel stenosis is placed in one of the following categories: normal, <50%, 5 0-69%, >=70% but less than near-occlusion, near-occlusion, or total occlusion. Note that percent sten osis relative to normal distal artery lumen diameter is indirectly measured from velocity measurement s as described by Reagan, et al. Radiology 2003; 229:340-346. Notes: Normal: Peak systolic velocity <125 centimeters/sec and no plaque <50%. Peak systolic velocity <125 ( EDV <40; ICA/CCA PSV ratio <2.0; used these factors only a tandem lesions or low cardiac output or co ntralateral disease) 50-69 %: PSV 125-230 (EDV 40-100; ratio 2-4) >= 70% but less than near occlusion: PSV greater than 230 (EDV > 100; ratio> 4.0) Near Occlusion: PSV that is variable; markedly narrowed lumen Occlusion: Absent flow on color/spectral Doppler and no lumen on hines scale. COMPARISON: None. FINDINGS: RIGHT: The right common carotid artery (CCA) peak systolic velocity (PSV) is 89 cm/s. The right internal car otid artery (ICA) PSV is 89 cm/s. The right ICA end-diastolic velocity (EDV) is 13 cm/s. The right IC A/CCA PSV ratio is 1.0. The external carotid artery (ECA) PSV is 150 cm/s. There is antegrade flow in the right vertebral artery. LEFT: The left CCA PSV is 102 cm/s. The left ICA PSV is 93 cm/s. The left ICA EDV is 14 cm/s. The left ICA/ CCA PSV ratio is 0.9. The ECA PSV is 133 cm/s. There is antegrade flow in the left vertebral artery. IMPRESSION: 1. Less than 50% stenosis in the right internal carotid artery by sonographic criteria. 2. Less than 50% stenosis in the left internal carotid artery by sonographic criteria. Reviewed, dictated and finalized at location A. IMPRESSION: 1. Less than 50% stenosis in the right internal carotid artery by sonographic audie lucia. 2. Less than 50% stenosis in the left internal carotid artery by sonographic neymar fam.
--- OUTSIDE RECORDS SUMMARY | 2025-01-13 14:07 | XMS_ITS | Clinical Summary ---
Author Organization [facility] Address [address] [place] [address] Care Team Providers Care Solar Sales Representative Name Role Phone Redd Aguero MD Primary Care Provider [phone] Encounters Date Type Department Care Team Description 11/12/2024 Telephone [facility] [address], [address] [id number] Lita Brown RN Results (CT Heart Screen Calcium Score) 11/07/2024 3:06 PM PHARMACY ASSISTANT - 11/07/2024 11:59 PM PHARMACY ASSISTANT Hospital Encounter [facility] [place] [address] [address] Redd Aguero MD Discharge Disposition: Home or Self Care (Routine Discharge) 11/07/2024 Travel from Last 3 Months Social History Tobacco Use Types Packs/Day Years Used Date Smoking Tobacco: Never Assessed Sex and Gender Information Value Date Recorded Sex Assigned at Male 11/07/2024 3:00 PM PHARMACY ASSISTANT Legal Sex Male 12:29 PM PHARMACY ASSISTANT Gender Identity Not on file Sexual Orientation [...] 05/26/2023 Pneumococcal Vaccine: 65+ Years Completed 08/25/2023 Meningococcal B Vaccine Aged Out No l [...] CALCIUM SCORE PROMO Routine 11/07/2024 3:30 PM PHARMACY ASSISTANT Essential (primary) hypertension Mixed hyperlipidemia Type 2 diabetes mellitus without complications ([facility]) from Last 3 Months Results * CT HEART SCREEN CALCIUM SCORE (11/07/2024 3:30 PM PHARMACY ASSISTANT) Anatomical Region Laterality Modality Chest Computed Tomogra phy Impressions 11/07/2024 3:41 PM PHARMACY ASSISTANT =====IMPRESSION:===== Total Score: 1037 Extensive plaque, high risk, high likelihood of significant stenosis (>50%). Ordered By: REDD AGUERO Interpreted By: Lyle Loza MD, 11/07/2024 3:41 PM Narrative 11/07/2024 3:41 PM PHARMACY ASSISTANT [facility] [address] [place], [place] [address] EXAMINATION: Multislice Helical CT Coronary Calcium Scoring [...] Calcium score guidelines: Total Score* Calcium Plaque Anthony *Risk *Probability of significant CAD 0 No [...] - Final from Last 3 Months Insurance [address] [id number] [facility] MEDICARE Care Teams Solar Sales Representative Relationship Specialty Start Date End Date Redd Aguero MD [address] [place] [address] PCP - General INTERNAL MEDICINE 10/29/24
--- OUTSIDE RECORDS SUMMARY | 2025-01-13 14:07 | XMS_ITS | Encounter Summary ---
Author Organization [facility] Address [address] [place] [address] [address] Team Prov[address] Care Drive In Theater Attendant Name Role Phone Redd Melendrez MD Primary Care Provider [phone] Atif Florentino DPT Unavailable [phone] Encounter Details Date Type Department Care Team (Late st Contact Info) Description 01/06/2025 Results Follow-Up [facility] [address] [place] [address] Emil Butcher MD [address] [id number] Social History Tobacco Use Types Packs/Day Years [...] on file Legal Sex Male 10:11 PM COMPUTER TECHNOLOGY INSTRUCTOR Gender Identity Male 06/03/2019 6:56 AM CDT Sexual Orientation Choose not to disclose 2021 10:22 AM COMPUTER TECHNOLOGY INSTRUCTOR documented as of this encounter Plan of Treatment Not on file documented as of this encounter Visit Diagnoses Not on filedocumented in this encounter Care Teams Drive In Theater Attendant Relationship Specialty Start Date End Date Redd Melendrez MD [address] [place] [address] PCP - General 12/21/16 Atif Florentino DPT [address] [facility] [address] [place] [address] Physical Therapist Physical Therapy 04/22/21 documented as of this encounter
--- OUTSIDE RECORDS SUMMARY | 2025-01-13 14:08 | XMS_ITS | Clinical Summary ---
Author Organization [facility] Healthcare Address [address] [place] [address] Care Team Providers Care Chin Strap Cutter Name Role Phone Redd Melendrez MD Primary Care Provider [phone] Atif Florentino DPT Unavailable [phone] Allergies Active Allergy Reactions Criticality Noted Date Comments Tetracyclines Rash Medium 03/29/2018 Medications fenofibrate choline (TRILIPIX) 135 mg capsuleIndications :hypercholesterole randell Take 1 capsule (135 mg total) by mouth every morning 02/16/20 18 Active glimepiride (AMARYL) 2 mg tabletIndications: type 2 diabetes mellitus Take 1-2 tablets (2-4 mg total) by mouth 2 (two) times a day 2 tablet in am 1 tablet in PM 03/13/20 18 Active lisinopril (PRINIVIL,ZESTRIL) 20 mg tabletIndications: hypertension Take 1 tablet (20 mg total) by mouth every morning 02/28/20 18 Active omeprazole (PriLOSEC) 20 mg capsuleIndications :Treatment of Non-Bleeding Gastric Disorder Take 1 capsule (20 mg total) by mouth 2 (two) times a day 02/16/20 18 Active aspirin 81 MG oral suspensionIndicati ons:heart health Take 81 mL (81 mg total) by mouth mechanical engineering specialist before breakfast 10/16/19 11 Active icosapent ethyL (VASCEPA) 1 gram capsuleIndications :hypertriglyceride randell Take 2 capsules (2 g total) by mouth 2 (two) times a day 06/17/20 20 Active multivitamin capsuleIndications :Vitamin Deficiency Prevention Take 1 capsule by mouth mechanical engineering specialist before breakfast Active Janumet XR 100-1,000 mg tablet, ER multiphase 24 hrIndications:type 2 diabetes mellitus Take 1 tablet by mouth every morning 11/01/19 22 Active acetaminophen (TYLENOL) 500 mg tablet Take 2 tablets (1,000 mg total) by mouth every 6 (six) hours as needed for pain Active ibuprofen (ADVIL,MOTRIN) 200 mg tab/cap Take 2 tablet/capsule (400 mg total) by mouth every 6 (six) hours as needed for pain Active Farxiga 10 mg tabletIndications: type 2 diabetes mellitus Take 1 tablet (10 mg total) by mouth every morning 01/19/20 23 Active Ozempic 2 mg/dose (8 mg/3 mL) pen injector injectionIndicatio ns:type 2 diabetes mellitus Inject 2 mg under the skin once a week Fridays03/01/20 23 Active cholecalciferol (Vitamin D3) 400 unit capsule Take 1 tablet/capsule (400 Units total) by mouth every morning Active OneTouch Ultra Test strip 3 (three) times a day 07/19/20 23 Active OneTouch Ultra2 Meter misc 3 (three) times a day 07/14/20 23 Active rosuvastatin (CRESTOR) 40 mg tablet Take 1 tablet (40 mg total) by mouth daily 06/06/20 23 Active OneTouch Delica Plus Lancet 33 gauge misc 3 (three) times a day 07/20/20 23 Active azelastine (ASTELIN) 137 mcg (0.1 %) nasal spray Administer 2 sprays into each nostril 2 (two) times a day 12/11/19 24 Active sildenafiL (VIAGRA) 100 mg tablet 12/20/19 24 Active tadalafiL (CIALIS) 5 mg tablet Take 1 tablet (5 mg total) by mouth daily 12/11/19 25 Active terbinafine (LamiSIL) 250 mg tablet Take 1 tablet (250 mg total) by mouth daily 10/24/19 25 Active rosuvastatin (CRESTOR) 20 mg tabletIndications: hyperlipidemia Take 1 tablet (20 mg total) by mouth mechanical engineering specialist before breakfast 05/02/20 19 025 Discontin ued(Thera py completed ) FreeStyle Feroz 14 Day Sensor kit 07/02/20 21 025 Discontin ued(Thera py completed ) niacin ER (NIASPAN) 1,000 mg CR tabletIndications: mixed hyperlipidemia Take 1 tablet (1,000 mg total) by mouth nightly 03/03/20 22 025 Discontin ued(Thera py completed ) Active Problems Problem Noted Date Diagnosed Date Obesity 01/06/2025 Dyslipidemia 01/06/2025 Rupture of left distal biceps tendon 03/17/2023 Neck pain on left side 09/22/2022 Arthritis of right acromioclavicular joint 08/01 Overview (08/01/2022): Added automatically from request for surgery [id number] Subacromial bursitis of right shoulder joint Overview (08/01/2022): Added automatically from request for surgery [id number] Traumatic incomplete tear of right rotator cuff 08/01/2022 Overview (08/01/2022): Added automatically from request for surgery [id number] History of colon polyps 05/28/2021 Overview (05/28/2021): Added automatically from request for surgery [id number] Screening for malignant neoplasm of colon 2020 Overview (05/28/2021): Added automatically from request for surgery [id number] Osteoarthritis of left knee 01/02/2018 Osteoarthritis of right knee 11/07/2017 Abscess of axilla 12/15/2016 Knee pain 06/29/2015 Arthritis 05/08/2012 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 Hypertension 05/08/2012 Hiatal hernia 05/08/2012 Dizziness 05/08/2012 Cervical radiculopathy 04/25/2012 Diabetes mellitus 04/25/2012 Herniated cervical intervertebral disc 2 Sebaceous cyst 07/28/2011 Encounters Date Type Department Care Team Description 01/06/2025 2:43 PM CDT - 01/06/2025 11:59 PM CDT Hospital Encounter [facility] [address] [place] [address] Discharge Disposition: Discharge to home or self care 01/06/2025 11:00 AM CDT Office Visit [facility] [address] [facility] 8th [place] [address] [place] [id number] Emil Butcher MD Heart abnormality (Primary Dx); Primary hypertension; Diabetes mellitus (HCC); Obesity; Dyslipidemia 01/06/2025 Results Follow-Up [facility] [address] [facility] [place] [address] Emil Butcher MD 11/08/2024 Telephone [facility] [address] [facility] 8th [place] [address] [place] [id number] Anila Roberts New Patient from Last 3 Months Immunizations Immunization Administration Dates Next Due Influenza, Unspecified 10/14/2013,08/27/2012 Pfizer SARS-CoV-2 Monovalent Vaccination (12+ Yrs) PURPLE 08/07/2021 ZOSTER Recombinant 03/31/2023,12/23/2022 Surgical History Surgery Date Site/Laterality Comments COLONOSCOPY CYST REMOVAL 10/16/2016 - 10/15/2017 sebacious cyst left chest MA ALEGRIA W/O FACETEC FORAMOT/DSC 1/2 VRT SGM CRV 10/16/2008 - 10/15/2009 Laminectomy [...] Date Comments Diabetes mellitus (HCC) not insu olivai dependent Hypertension HEMANTH (obstructive sleep apnea) us ing cpap Hiatal hernia not bothering pt at this time Low testosterone Hyperlipidemia GERD (gastroesophageal reflux disease) well controlled Arthritis 10/16/2011 [place] (hard of hearing) no aids Tinnitus Clotting disorder PT DENIES Family History Medical History Relation [...] on file Legal Sex Male 10:11 PM CONFIGURATION MANAGEMENT ARCHITECT Gender Identity Male 06/03/2019 6:56 AM CDT Sexual Orientation Choose not to disclose 2021 10:22 AM CONFIGURATION MANAGEMENT ARCHITECT Obstetrics History Last Filed Vital Signs Vital Sign Reading Time Taken Comments Blood Pressure 140/61 01/06/2025 11:15 AM CDT Pulse 82 01/06/2025 11:15 AM CDT Temperature 36.5 C (97.7 F) 03/22/2023 11:31 AM CDT Respiratory Rate 14 03/22/2023 12:40 PM CDT Oxygen Saturation 96% 01/06/2025 11:15 AM CDT Inhaled Oxygen Concentration - - Weight 129.7 kg (286 lb) 01/06/2025 11:15 AM CDT Height 184.2 cm (6' 0.5 ) 01/06/2025 11:15 AM CD T Body Mass Index 38.26 01/06/2025 11:15 AM CDT Plan of Treatment Health Maintenance Due Date Last Done Comments Albumin Creatinine Ratio, Urine 1955 Hepatitis C Screening 1955 Dilated Eye Exam 1955 Foot Exam 1955 DTaP/Tdap/Td Vaccine (1 - Tdap) 1964 Hepatitis B Screening 1971 Pneumococcal vaccine 65+ (1 of 2 - PCV) 1972 Abdominal Aortic Aneurysm (A AA) Screen 2018 [...] 03/31/2023, 12/23/2022 Medical Devices Implanted Type Area Receptionist Telephone Operator Device Identifier Shelf Expiration Date Model / Serial / Lot [employer] 6197-9-010 Simplex P Full Dose Radiopaque Preblend Cement Bone Tobramycin - [id number] Implanted:Qty: 1 on 05/04/2018 by Jericho Henderson MD at [facility] [employer] [id number] 06/15/2019 6197-9-01 0 / / [employer] 6191-1-010 Simplex P Radiopaque Full Dose Cement Bone Sterile - [id number] Implanted:Qty: 1 on 05/04/2018 by Jericho Henderson MD at [facility] [employer] [id number] 07/15/2020 6191-1-01 0 / / [employer] [id number] Evolution Mp Keel Right 7 Standard Baseplate Tibial Nonporous - [id number] Implanted:Qty: 1 on 05/04/2018 by Jericho Henderson MD at [facility] [employer] 01/30/2026 [id number] / / [employer] [id number] Evolution Mp 12mm Cruciate Substitute Knee Right 7 Standard - [id number] Implanted:Qty: 1 on 05/04/2018 by Jericho Henderson MD at [facility] [employer] 10/15/2021 [id number] / / [employer] [id number] Evolution Mp Primary Cruciate Retaining Cruciate Sustain Knee - [id number] Implanted:Qty: 1 on 05/04/2018 by Jericho Henderson MD at [facility] [employer] 09/01/2025 [id number] / / [employer] [id number] 38mm 10mm 3 Peg Onlay Component Patellar All Poly - [id number] Implanted:Qty: 1 on 05/04/2018 by Jericho Henderson MD at [facility] [employer] 05/08/2025 [id number] / / [employer] Corkscrew Fiberwire 3.5mm 12mm Self Tap Eyelet Handle Margin Clerk Ar-5sf - [id number] Implanted:Qty: 1 on 03/22/2023 by Blake Jackson MD at [facility] Left: Arm [employer] 10/15/2027 [id number] / / [id number] [employer] Corkscrew Fiberwire 3.5mm 12mm Self Tap Eyelet Handle Margin Clerk Ar-5sf - [id number] Implanted:Qty: 1 on 03/22/2023 by Blake Jackson MD at [facility] Upper Tract Left: Arm [employer] 10/15/2027 [id number] / / [id number] Procedures Procedure Name Priority Date/Time Associated Diagnosis Comments NM OUTSIDE REFERENCE Routine 01/06/2025 2:43 PM CDT ECG 12-LEAD Routine 01/06/2025 11:22 AM CDT Heart abnormality EGFR Routine 07/20/2022 8:09 AM CDT HEMOGLOBIN A1C Routine 07/20/2022 8:09 AM CDT LIPID PANEL Routine 07/20/2022 8:09 AM CDT COLONOSCOPY 08/20/2021 11:29 AM CDT PSA DIAGNOSTIC Routine 06/07/2021 5:05 PM CDT from Last 3 Months or Most Recently Relevant to Health Maintenance Results * NM Outside Reference (01/06/2025 2:43 PM CDT) Impressions RAD_PACS_[facility] - 01/06/2025 2:43 PM CDT These images are for Reference purposes only and have not been reviewed by [facility]. There will be no report generated by a [facility]iologist. Narrative RAD_PACS_[facility] - 01/06/2025 2:43 PM CDT EXAMINATION: Images For Reference Purposes Only Emil Butcher MD IMG NM PROCEDURES Final Result RAD_PACS_[facility] * ECG 12 lead (01/06/2025 11:22 AM CDT) Emil Butcher MD ECG ORDERABLES Edited Result - Final * (ABNORMAL) eGFR (07/20/2022 8:09 AM CDT) [...] MD LAB BLOOD ORDERABLES Final [facility] Department [place] [address] * (ABNORMAL) Hemoglobin A1c (07/20/2022 8:09 AM CDT) Hgb A1C 8.2(H) 4.0 - 5.6 % [facility] Estimated Average Glucose 189 mg/dL [facility] Comment: The ADA recommends reporting [...] MD LAB BLOOD ORDERABLES Final Re sult [facility] Department [place] [address] * (ABNORMAL) Lipid panel (07/20/2022 8:09 AM CDT) Cholesterol 157 30 - 199 mg/dL [facility] Comment: Interpretive Data Ages < or = [...] revised on 2018. Triglycerides 196(H) <=149 mg/dL [facility] Comment: Interpretive Data Ages < or = [...] revised on 2018. HDL 33(L) >=40 mg/dL [facility] Comment: Interpretive Data Ages < or = [...] on 2018. LDL, calculated 85 <=129 mg/dL [facility] Comment: Interpretive Data Ages < or = [...] revised on 2018. Non-HDL Cholesterol 124 mg/dL [facility] Comment: Interpretive Data Ages < or = [...] last revised on 2018. Chol/HDL ratio 5 [facility] Blood 07/20/2022 8:09 AM CDT 07/20/2022 9:38 AM CDT us Redd Melendrez MD LAB BLOOD ORDERABLES Final Re sult [facility] Department [place] [address] * COLONOSCOPY (08/20/2021 11:29 AM CDT) Anatomical Region Laterality Modality Other Narrative Procedure Note Blake Gonzáles MD - 08/20/2021 11:29 AM CDT ENDOSCOPY LAB Patient Name: Geovani Cardona Procedure Date: 08/20/2021 11:29 AM Date of : 1955 Admit Type: Outpatient Age: 66 Gender: Male Attending MD: Blake Gonzáles M.D. Room: [facility] ENDOSCOPY ROOM 02 Note Status: Finalized [...] The scope was passed under direct vision.The [id number] was introduced through the anusand advanced to the cecum, identified by appendiceal orifice and ileocecal valve. The colonoscopy was performed with ease. The patient tolerated the procedure well. The quality of the bowelpreparation was excellent. The quality of the bowel preparation was evaluated using the BBPS ([place] BowelPreparation Scale) with scores of: Right Colon [...] PM CDT) PSA-Total 0.20 <=5.40 ng/mL [facility] Comment: Interpretive Data AGE SEX REFERENCE INTERVAL 0 minutes-150 years Female None 0 minutes-49 years Male None 50-59 years Male 0-3.90 60-69 years Male 0-5.40 70-79 years Male 0-6.20 80-150 years Male 0-6.20 Current interpretive data last revised 2018. Blood 06/07/2021 5:05 PM CDT 06/07/2021 5:16 PM CDT us Redd Melendrez MD LAB BLOOD ORDERABLES Final Re sult [facility] [place] [address] from Last 3 Months or Most Recently Relevant to Health Maintenance Insurance [facility] [employer] Address: [address] [place] [address] MEDICARE [facility] [employer] Address: [facility] [id number] [place] [address] MEDICARE MEDICARE [facility] [employer] Address: [address] [place] [address] [address] [place] [address] MEDICARE [facility] Advance Directives For more information, please contact: [phone] * Full Code (Latest Code Status on File) Date Activated Date Inactivated Comments 08/20/2021 10:11 AM 08/20/2021 4:54 PM * Full Code Date Activated Date Inactivated Comments 05/08/2018 7:48 PM 08/20/2021 10:01 AM * Full Code Date Activated Date Inactivated Comments 05/04/2018 1:42 PM 05/05/2018 4:30 PM Care Teams Chin Strap Cutter Relationship Specialty Start Date End Date Redd Melendrez MD [address] [facility] [address] [address] [facility] [address] [place] [id number] PCP - General 12/21/16 Atif Florentino DPT [address] [facility] [address] [place] [address] Physical Therapist Physical Therapy 04/22/21
--- OUTSIDE RECORDS SUMMARY | 2025-01-13 14:08 | XMS_ITS | Referral Summary ---
Author Organization [facility] Healthcare Address [address] [place] [address] Care Team Providers Care Bi Analyst Name Role Phone Redd Melendrez MD Primary Care Provider [phone] Atif Florentino DPT Unavailable [phone] Encounters Date Type Department Care Team Description 01/06/2025 2:43 PM CDT - 01/06/2025 11:59 PM CDT Hospital Encounter [facility] [address] [place], [place] [id number] Discharge Disposition: Discharge to home or self care 01/06/2025 Results Follow-Up [facility] [address] [place] [address] Emil Butcher MD 01/06/2025 11:00 AM CDT Office Visit [facility] Cardiology [address] [facility] [address]th [place] [address] [place] [phone] Emil Butcher MD Heart abnormality (Primary Dx); Primary hypertension; Diabetes mellitus (HCC); Obesity; Dyslipidemia 11/08/2024 Telephone [facility] Cardiology [address] [facility] [address] [place] [address] [place] [id number] Roberts, Demetres New Patient from Last 3 Months Allergies [...] 81 mL (81 mg total) by mouth medical typist before breakfast 10/16/19 11 Active icosapent ethyL (VASCEPA) 1 gram capsuleIndications :hypertriglyceride randell Take 2 capsules (2 g total) by mouth 2 (two) times a day 06/17/20 20 Active multivitamin capsuleIndications :Vitamin Deficiency Prevention Take 1 capsule by mouth medical typist before breakfast Active Janumet XR 100-1,000 mg [...] 1 tablet (20 mg total) by mouth medical typist before breakfast 05/02/20 19 025 Discontin ued(Thera [...] (08/01/2022): Added automatically from request for surgery [id number] Subacromial bursitis of right shoulder joint Overview (08/01/2022): Added automatically from request for surgery [id number] Traumatic incomplete tear of right rotator cuff 08/01/2022 Overview (08/01/2022): Added automatically from request for surgery [id number] History of colon polyps 05/28/2021 Overview (05/28/2021): Added automatically from request for surgery [id number] Screening for malignant neoplasm of colon 2020 Overview (05/28/2021): Added automatically from request for surgery [id number] Osteoarthritis of left knee 01/02/2018 Osteoarthritis of [...] on file Legal Sex Male 10:11 PM OUTPATIENT COORDINATOR Gender Identity Male 06/03/2019 6:56 AM CDT Sexual Orientation Choose not to disclose 2021 10:22 AM OUTPATIENT COORDINATOR Last Filed Vital Signs Vital Sign Reading [...] 01/06/2025 11:15 AM CDT Plan of Treatment Not on file Medical Devices Implanted Type Area Party Plan Sales Unit Advisor Device Identifier Shelf Expiration Date Model / Serial / Lot [employer] 6197-9-010 Simplex P Full Dose Radiopaque Preblend Cement Bone Tobramycin - [id number] Implanted:Qty: 1 on 05/04/2018 by Jericho Henderson MD at [facility] [employer] [id number] 06/15/2019 6197-9-01 0 / / [employer] 6191-1-010 Simplex P Radiopaque Full Dose Cement Bone Sterile - [id number] Implanted:Qty: 1 on 05/04/2018 by Jericho Henderson MD at [facility] [employer] [id number] 07/15/2020 6191-1-01 0 / / [employer] [id number] Evolution Mp Keel Right 7 Standard Baseplate Tibial Nonporous - [id number] Implanted:Qty: 1 on 05/04/2018 by Jericho Henderson MD at [facility] [employer] 01/30/2026 [id number] / / [employer] [id number] Evolution Mp 12mm Cruciate Substitute Knee Right 7 Standard - [id number] Implanted:Qty: 1 on 05/04/2018 by Jericho Henderson MD at [facility] 10/15/2021 [id number] / / [employer] [id number] Evolution Mp Primary Cruciate Retaining Cruciate Sustain Knee - [id number] Implanted:Qty: 1 on 05/04/[facility] 09/01/2025 [id number] / / [employer] [id number] Advance 38mm 10mm 3 Peg Onlay Component Patellar All Poly - [id number] Implanted:Qty: 1 on 05/04/2018 by Jericho Henderson MD at [facility] 05/08/2025 [id number] / / [employer] Fiberwire 3.5mm 12mm Self Tap Eyelet Handle Manager Of Loss Prevention Operations Ar-5sf - [id number] Implanted:Qty: 1 on 03/22/2023 by Blake Jackson MD at [facility] Orthopedic Leroy Left: Arm [employer] 10/15/2027 [id number] / / [id number] [employer] Fiberwire 3.5mm 12mm Self Tap Eyelet Handle Manager Of Loss Prevention Operations [id number] - [id number] Implanted:Qty: 1 on 03/22/2023 by Blake Jackson MD at [facility] Leroy Left: Arm [employer] 10/15/2027 [id number] / / [id number] Procedures Procedure Name Priority Date/Time Associated Diagnosis [...] Outside Reference (01/06/2025 2:43 PM CDT) Impressions [facility] - 01/06/2025 2:43 PM CDT These images are for Reference purposes only and have not been reviewed by [facility] Radiology. There will be no report generated by a [facility] Radiologist. Narrative [facility] - 01/06/2025 2:43 PM CDT EXAMINATION: Images For Reference Purposes Only us Emil Butcher MD IMG NM PROCEDURES Final Result [facility] * ECG 12 lead (01/06/2025 11:22 AM CDT) us Emil Butcher MD ECG ORDERABLES Edited Result - Final * (ABNORMAL) eGFR (07/20/2022 8:09 AM CDT) eGFR 82(L) 90 - 130 mL/min/1. 73 m2 JOO [facility] Comment: Interpretive Data Reference Interval [...] ORDERABLES Final Re sult Performing Organization Address [facility] de Phone Number [facility] [place] [address] * (ABNORMAL) Hemoglobin A1c (07/20/2022 8:09 AM CDT) Hgb A1C 8.2(H) 4.0 - 5.6 % [facility] Estimated Average Glucose 189 mg/dL [facility] Comment: The ADA recommends reporting an [...] ORDERABLES Final Re sult Performing Organization Address [facility] Co de Phone Number [facility] Department [place] [address] * (ABNORMAL) Lipid panel (07/20/2022 8:09 AM CDT) Cholesterol 157 30 - 199 mg/dL [facility] Comment: Interpretive Data Ages < or [...] revised on 2018. Triglycerides 196(H) <=149 mg/dL [facility] Comment: Interpretive Data Ages < or [...] revised on 2018. HDL 33(L) >=40 mg/dL [facility] Comment: Interpretive Data Ages < or = 19 years Acceptable: >45 mg/dL Borderline low: 40-45 mg/dL Low: <40 mg/dL Ages > or = 20 years Desirable: >or= 60 mg/dL Low: <40 mg/dL Literature References: 1. Expert Panel on Integrated Guidelines for Cardiovascular Health and Risk Reduction in Children and Adolescents. Pediatrics 2011;128:S213 2. NCEP Expert Panel. Circulation 2003;110:227 Current Interpretive Data was last revised on 2018. LDL, calculated 85 <=129 mg/dL [facility] Comment: Interpretive Data Ages < or [...] Pediatrics 2011;128:S213 2. NCEP Expert Panel. Circulation 2003;110:227 Current Interpretive Data was last revised on 2018. Non-HDL Cholesterol 124 mg/dL [facility] Comment: Interpretive Data Ages < or [...] last revised on 2018. Chol/HDL ratio 5 [facility] Blood 07/20/2022 8:09 AM CDT 07/20/2022 9:38 AM CDT Redd Melendrez MD LAB BLOOD ORDERABLES Final Re sult [facility] [place] [address] * COLONOSCOPY (08/20/2021 11:29 AM CDT) Anatomical Region Laterality Modality Other Narrative Procedure Note Blake Gonzáles MD - 08/20/2021 11:29 AM CDT ENDOSCOPY LAB Patient Name: Geovani Cardona Procedure Date: 08/20/2021 11:29 AM Date of : 1955 Admit Type: Outpatient Age: 66 Gender: Male Attending MD: Blake Gonzáles M.D. Room: [facility] ENDOSCOPY ROOM 02 Note Status: [...] The scope was passed under direct vision.The [id number] was introduced through the anusand advanced to the cecum, identified by appendiceal orifice and ileocecal valve. The colonoscopy was performed with ease. The patient tolerated the procedure well. The quality of the bowelpreparation was excellent. The quality of the bowel preparation was evaluated using the BBPS ([place] BowelPreparation Scale) with scores of: Right Colon [...] MD LAB BLOOD ORDERABLES Final Re sult [facility] [place] [address] from Last 3 Months or Most Recently Relevant to Health Maintenance Insurance [facility] [employer] Address: [facility] [id number] [place] [address] MEDICARE [facility] [employer] Address: [facility] [id number] [place] [address] MEDICARE MEDICARE [facility] [employer] Address: [facility] [id number] [place] [address] MEDICARE [facility] Advance Directives For more information, please contact: [phone] * Full Code (Latest Code Status on File) Date Activated Date Inactivated Comments 08/20/2021 10:11 AM 08/20/2021 4:54 PM * Full Code Date Activated Date Inactivated Comments 05/08/2018 7:48 PM 08/20/2021 10:01 AM * Full Code Date Activated Date Inactivated Comments 05/04/2018 1:42 PM 05/05/2018 4:30 PM Care Teams Bi Analyst Relationship Specialty Start Date End Date Redd Melendrez MD [address] [facility] [address] [facility] [address] [place] [address] PCP - General 12/21/16 Atif Florentino DPT [address] [facility] [address] [place] [address] Physical Therapist Physical Therapy 04/22/21
== END 2025-01-13 12:52 | disposition home or self-care (01) ==
PROVIDERS: PCP Internal Medicine; Visit Provider Internal Medicine
DX: R93.1 Abnormal findings on diagnostic imaging of heart and coronary circulation (principal); E78.2 Mixed hyperlipidemia; I10 Essential (primary) hypertension; I65.23 Occlusion and stenosis of bilateral carotid arteries
CPT/HCPCS: 93880

== ENCOUNTER 2025-02-04 09:33 | Outpatient (CLI) | payer MEDICARE, SELFPAY ==
--- NOTE | ~2025-02-04 | XR_ITS ---
3 VIEWS PARANASAL SINUSES Ordering provider: Redd Melendrez MD History: . Dan view of the Sinuses . Comparison: None. FINDINGS: BONES: No acute fracture as visualized. PARANASAL SINUSES: Well aerated. No air fluid levels. SOFT TISSUES: Normal. IMPRESSION: NO EVIDENCE OF SINUS DISEASE. Reviewed, dictated and finalized at location A.
--- OUTSIDE RECORDS SUMMARY | 2025-02-04 10:28 | XMS_ITS | Encounter Summary ---
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 Gender Identity Male 06/03/2019 6:56 AM CDT Sexual Orientation Choose not to disclose 2021 10: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
--- OUTSIDE RECORDS SUMMARY | 2025-02-04 10:28 | XMS_ITS | Clinical Summary ---
Author Organization [facility] Healthcare Address [address] [place] [address] Care Team Providers Care Superintendent [employer]munition [employer] Name Role Phone Redd Melendrez MD Primary Care Provider [phone] Atif Florentino DPT Unavailable [phone] Allergies Active Allergy Reactions Criticality Noted Date [...] 81 mL (81 mg total) by mouth canadian bacon tier before breakfast 10/16/19 11 Active icosapent ethyL (VASCEPA) 1 gram capsuleIndications :hypertriglyceride randell Take 2 capsules (2 g total) by mouth 2 (two) times a day 06/17/20 20 Active multivitamin capsuleIndications :Vitamin Deficiency Prevention Take 1 capsule by mouth canadian bacon tier before breakfast Active Janumet XR 100-1,000 mg [...] 1 tablet (20 mg total) by mouth canadian bacon tier before breakfast 05/02/20 19 025 Discontin ued(Thera py completed ) FreeStyle Feroz 14 Day Sensor kit 07/02/20 21 025 Discontin ued(Thera py completed ) niacin ER (NIASPAN) 1,000 mg CR tabletIndications: mixed hyperlipidemia Take 1 tablet (1,000 mg total) by mouth nightly 03/03/20 22 025 Discontin ued(Thera py completed ) Hospital, Clinic, or Other Facility Administered Medication Ordered Dose Route Frequency Start Date End Date Status lidocaine (XYLOCAINE) 10 mg/mL (1 %) injection 1 mLIndications:Admi nistration of Local Anesthesia 1 mL One-Time Injection 01/14/2025 01/14/2025 Ended lidocaine (XYLOCAINE) 10 mg/mL (1 %) injection 1 mLIndications:Admi nistration of Local Anesthesia 1 mL One-Time Injection 01/14/2025 01/14/2025 Ended methylPREDNISolone acetate (DEPO-medrol) injection 40 mgIndications:Trig adelfo index finger of left hand,Trigger ring finger of right hand 40 mg intra-artic One-Time Injection 01/14/2025 01/14/2025 Ended methylPREDNISolone acetate (DEPO-medrol) injection 40 mgIndications:Trig adelfo index finger of left hand,Trigger ring finger of right hand 40 mg intra-artic One-Time Injection 01/14/2025 01/14/2025 Ended Active Problems Problem Noted Date Diagnosed Date Obesity 01/06/2025 Dyslipidemia 01/06/2025 Rupture of left distal biceps tendon 03/17/2023 Neck pain on left side 09/22/2022 Arthritis of right acromioclavicular joint 08/01 Overview (08/01/2022): Added automatically from request for surgery [id number] Subacromial bursitis of right shoulder joint Overview (08/01/2022): Added automatically from request for surgery [id number] Traumatic incomplete tear of right rotator cuff 08/01/2022 Overview (08/01/2022): Added automatically from request for surgery [id number] History of colon polyps 05/28/2021 Overview (05/28/2021): Added automatically from request for surgery [id number] Screening for malignant neoplasm of colon 2020 Overview (05/28/2021): Added automatically from request for surgery [id number] Osteoarthritis of left knee 01/02/2018 Osteoarthritis of right knee 11/07/2017 Abscess of axilla 12/15/2016 Knee pain 06/29/2015 Arthritis 05/08/2012 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 Hypertension 05/08/2012 Hiatal hernia 05/08/2012 Dizziness 05/08/2012 Cervical radiculopathy 04/25/2012 Diabetes mellitus 04/25/2012 Herniated cervical intervertebral disc 2 Sebaceous cyst 07/28/2011 Encounters Date Type Department Care Team Description 01/14/2025 11:30 AM CDT Office Visit [facility] Orthopaedic Surgery [facility] [address] [place] [address] [place] [address] Yvon Fajardo MD Trigger index finger of left hand (Primary Dx); Trigger ring finger of right hand 01/06/2025 2:43 PM CDT - 01/06/2025 11:59 PM CDT Hospital Encounter [facility] [address] [place] [id number] Discharge Disposition: Discharge to home or self care 01/06/2025 11:00 AM CDT Office Visit [facility] Cardiology [address] [place] [address] Advanced Medicine [address]th [place] [address] [place] [address] Emil Butcher MD Heart abnormality (Primary Dx); Primary hypertension; Diabetes mellitus (HCC); Obesity; Dyslipidemia 01/06/2025 Results Follow-Up [facility] [address] [place] [address] Emil Butcher MD 11/08/2024 Telephone [facility] Cardiology [address] [place] [address] Advanced Medicine 8th [place] [address] [place] [address] Anila Roberts New Patient from Last 3 Months Immunizations Immunization Administration Dates Next Due Influenza, Unspecified 10/14/2013,08/27/2012 Pfizer SARS-CoV-2 Monovalent Vaccination (12+ Yrs) PURPLE 08/07/2021 ZOSTER Recombinant 03/31/2023,12/23/2022 Surgical History Surgery Date Site/Laterality Comments COLONOSCOPY CYST REMOVAL 10/16/2016 - 10/15/2017 sebacious cyst left chest WA ALEGRIA W/O FACETEC FORAMOT/DSC 1/ VRT SGM CRV 10/16/2008 - 10/15/2009 Laminectomy Lumbar - (Added by TW Conv) FLUORO GUIDED ASPIRATION OR INJECTION INTERMEDIATE JOINT RIGHT 11/05/2020 Right TOTAL KNEE ARTHROPLASTY 10/16/2017 - 10/15/2018 Right FLUORO GUIDED INJECTION SHOULDER RIGHT 11/25/2021 Right VASECTOMY 10/16/1993 - 10/15/1994 FINGER SURGERY 10/16/2021 - 10/15/2022 trigger finger injection JOINT REPLACEMENT 2018 right knee SPINE SURGERY 2009 SHOULDER SURGERY 08/16/2022 - 09/14/2022 Medical History Medical History Date Comments Diabetes mellitus (HCC) 2000 not insu olivia dependent Hypertension 1999 HEMANTH (obstructive sleep apnea) us ing cpap Hiatal hernia not bothering pt at this time Low testosterone Hyperlipidemia GERD (gastroesophageal reflu x disease) 40 plus years ago. Hiatal hernia well controlled Arthritis 10/16/2011 UTE (hard of hearing) no aids Tinnitus Clotting disorder PT DENIES Family History Medical History Relation Name Comments Crohn's disease Daughter Family histo ry of Crohn's disease - (Added by TW Conv) Aortic aneurysm Father Arthritis Mother Izabela Depression Mother Izabela Diabetes Mother Izabela Drug abuse Mother Izabela Heart attack Mother Izabela Heart disease Mother Izabela Family history of cardiac disorder - (Added by TW Conv) Memory loss Mother Izabela Mental illness Mother Izabela Stroke Mother Izabela Diabetes Other 1 Diabetes [...] Name Status Comments Daughter Father Mother Izabela Other 1 Other 2 Other 3 Other [...] on file Legal Sex 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 Gender Identity Male 06/03/2019 6:56 AM CDT Sexual Orientation Choose not to disclose 2021 10:22 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 Obstetrics History Last Filed Vital Signs Vital [...] season) 2024 08/07/2021, 11/25/2020, 11/04/2020 Influenza Vaccine (Season Ended) 2025 10/14/20 13, 08/27/2012 Colon Cancer Screening-Colonoscopy 08/20/2031 08/20/2021 Prostate Cancer Screening-PSA Discontinued , 05/11/2020, 05/07/2019, Additional history exists Colon Cancer Screening-CT Colonography Discontinued 08/20/2021 Colon Cancer Screening-DNA Stool Discontinued 08/20/20 21 Colon Cancer Screening-FIT Discontinued 08/20/2021 Colon Cancer Screening-Sigmoidoscopy Discontinued 08/20/2021 Zoster Vaccine Completed 03/31/2023, 12/23/2022 Medical Devices Implanted Type Area Field Nurse Device Identifier Shelf Expiration Date Model / Serial / Lot [employer] 6197-9-010 Simplex P Full Dose Radiopaque Preblend Cement Bone Tobramycin - [id number] Implanted:Qty: 1 on 05/04/2018 by Jericho Henderson MD at [facility] [employer] [id number] 06/15/2019 6197-9-01 0 / / [employer] 6191-1-010 Simplex P Radiopaque Full Dose Cement Bone Sterile - [id number] Implanted:Qty: 1 on 05/04/2018 by Jericho Henderson MD at [facility] [employer] [id number] 07/15/2020 6191-1-01 0 / / [employer] [id number] Evolution Mp Keel Right 7 Standard Baseplate Tibial Nonporous - [id number] Implanted:Qty: 1 on 05/04/2018 by Jericho Henderson MD at [facility] [employer] 01/30/2026 [id number] / / [employer] [id number] Evolution Mp 12mm Cruciate Substitute Knee Right 7 Standard - [id number] Implanted:Qty: 1 on 05/04/2018 by Jericho Henderson MD at [facility] 10/15/2021 [id number] / / [employer] [id number] Evolution Mp Primary Cruciate Retaining Cruciate Sustain Knee - [id number] Implanted:Qty: 1 on 05/04/2018 [facility] 09/01/2025 [id number] / / [employer] [id number] 38mm 10mm 3 Peg Onlay Component Patellar All Poly - [id number] Implanted:Qty: 1 on 05/04/2018 by Jericho Henderson MD at [facility] 05/08/2025 [id number] / / [employer] Corkscrew Fiberwire 3.5mm 12mm Self Tap Eyelet Handle Oncology Admin [id number]-[id number] - [id number] Implanted:Qty: 1 on 03/22/2023 by Blake Jackson MD at [facility] Laura Left: Arm [employer] 10/15/2027 [id number] / / [id number] [employer]cre[employer] Fiberwire 3.5mm 12mm Self Tap Eyelet Handle Oncology Admin [id number]-[id number] - [id number] Implanted:Qty: 1 on 03/22/2023 by Blake Jackson MD at [facility] Laura Left: Arm [employer] 10/15/2027 [id number] / / [id number] Procedures Procedure Name Priority Date/Time Associated Diagnosis Comments WA INJECTION 1 TENDON SHEATH/LIGAMENT APONEUROSIS Routine 01/14/2025 11:30 AM CDT Trigger index finger of left hand Trigger ring finger of right hand WA INJECTION 1 TENDON SHEATH/LIGAMENT APONEUROSIS Routine 01/14/2025 11:30 AM CDT Trigger index finger of left hand Trigger ring finger of right hand NM OUTSIDE REFERENCE Routine 01/06/2025 2:43 PM CDT ECG 12-LEAD Routine 01/06/2025 11:22 AM CDT Heart abnormality EGFR Routine 07/20/2022 8:09 AM CDT HEMOGLOBIN A1C Routine 07/20/2022 8:09 AM CDT LIPID PANEL Routine 07/20/2022 8:09 AM CDT COLONOSCOPY 08/20/2021 11:29 AM CDT PSA DIAGNOSTIC Routine 06/07/2021 5:05 PM CDT from Last 3 Months or Most Recently Relevant to Health Maintenance Results * WA INJECTION 1 TENDON SHEATH/LIGAMENT APONEUROSIS, WA INJECTION 1 TENDON SHEATH/LIGAMENT APONEUROSIS (01/14/2025 11:30 AM CDT) Narrative Yvon Fajardo MD - 01/14/2025 11:30 AM CDT Yvon Fajardo MD 01/14/2025 4:46 PM Hand / Upper Extremity Injection: L index A1, R ring A1 Performed by: Yvon Fajardo MD Authorized by: Yvon Fajardo MD Condition: trigger finger Location: Index finger and ring finger Site: L index A1 Site: R ring A1 Medications Left Index Injection: 1 mL lidocaine 10 mg/mL (1 %); 40 mg methylPREDNISolone acetate 40 mg/mL Medications Right Ring Injection: 1 mL lidocaine 10 mg/mL (1 %); 40 mg methylPREDNISolone acetate 40 mg/mL Yvon Fajardo MD IN CLINIC/BEDSIDE ORDERABLES Final Result * NM Outside Reference (01/06/2025 2:43 PM CDT) Impressions JOSE - 01/06/2025 2:43 PM CDT These images are for Reference purposes only and have not been reviewed by [facility] Radiology. There will be no report generated by a [facility] Radiologist. Narrative [facility] - 01/06/2025 2:43 PM CDT EXAMINATION: Images For Reference Purposes Only Emil Butcher MD IMG NM PROCEDURES Final Result [facility] * ECG 12 lead (01/06/2025 11:22 AM CDT) Emil Butcher MD ECG ORDERABLES Edited Result - Final * (ABNORMAL) eGFR (07/20/2022 8:09 AM CDT) eGFR 82(L) 90 - 130 mL/min/1. 73 m2 [facility] Comment: Interpretive Data Reference Interval [...] ORDERABLES Final Re sult Performing Organization Address [facility] Co de Phone Number [facility] Department [place] [address] * (ABNORMAL) Hemoglobin A1c (07/20/2022 8:09 AM CDT) Hgb A1C 8.2(H) 4.0 - 5.6 % [facility] Estimated Average Glucose 189 mg/dL [facility] Comment: The ADA recommends reporting an [...] ORDERABLES Final Re sult Performing Organization Address [facility] Co de Phone Number [facility] Department [place] [address] * (ABNORMAL) Lipid panel (07/20/2022 8:09 AM CDT) Pathologist [facility] Cholesterol 157 30 - 199 mg/dL [facility] Comment: Interpretive Data Ages < or [...] revised on 2018. Triglycerides 196(H) <=149 mg/dL [facility] Comment: Interpretive Data Ages < or [...] revised on 2018. HDL 33(L) >=40 mg/dL [facility] Comment: Interpretive Data Ages < or [...] on 2018. LDL, calculated 85 <=129 mg/dL [facility] Comment: Interpretive Data Ages < or [...] revised on 2018. Non-HDL Cholesterol 124 mg/dL [facility] Comment: Interpretive Data Ages < or [...] revised on 2018. Chol/HDL ratio 5 [facility] Blood 07/20/2022 8:09 AM CDT 07/20/2022 9:38 AM CDT us Redd Melendrez MD LAB BLOOD ORDERABLES Final Re sult [facility] Department [place] [address] * COLONOSCOPY (08/20/2021 11:29 AM CDT) Anatomical Region Laterality Modality Other Narrative Procedure Note Blake Gonzáles MD - 08/20/2021 11:29 AM CDT ENDOSCOPY LAB Patient Name: Geovani Cardona Procedure Date: 08/20/2021 11:29 AM Date of : 1955 Admit Type: Outpatient Age: 66 Gender: Male Attending MD: Blake Gonzáles M.D. Room: [facility] ENDOSCOPY ROOM 02 Note Status: Finalized [...] The scope was passed under direct vision.The [id number] was introduced through the anusand advanced to the cecum, identified by appendiceal orifice and ileocecal valve. The colonoscopy was performed with ease. The patient tolerated the procedure well. The quality of the bowelpreparation was excellent. The quality of the bowel preparation was evaluated using the BBPS (Vanleer BowelPreparation Scale) with scores of: Right Colon [...] PM CDT) PSA-Total 0.20 <=5.40 ng/mL [facility] Comment: Interpretive Data AGE SEX REFERENCE INTERVAL 0 minutes-150 years Female None 0 minutes-49 years Male None 50-59 years Male 0-3.90 60-69 years Male 0-5.40 70-79 years Male 0-6.20 80-150 years Male 0-6.20 Current interpretive data last revised 2018. Blood 06/07/2021 5:05 PM CDT 06/07/2021 5:16 PM CDT us Redd Melendrez MD LAB BLOOD ORDERABLES Final Re sult [facility] Department [place] [address] from Last 3 Months or Most Recently Relevant to Health Maintenance Insurance [employer] Address: [facility] [id number] [place] [address] MEDICARE [facility] [employer] Address: [facility] [id number] [place] [address] MEDICARE [address] [place] [address] MEDICARE [employer] [facility] [employer] [employer] Address: [address] [place] [address] MEDICARE [facility] Advance Directives For more information, please contact: [phone] * Full Code (Latest Code Status on File) Date Activated Date Inactivated Comments 08/20/2021 10:11 AM 08/20/2021 4:54 PM * Full Code Date Activated Date Inactivated Comments 05/08/2018 7:48 PM 08/20/2021 10:01 AM * Full Code Date Activated Date Inactivated Comments 05/04/2018 1:42 PM 05/05/2018 4:30 PM Care Teams Superintendent [employer] Relationship Specialty Start Date End Date Redd Melendrez MD [address] [facility] [address] [facility] [address] [place] [address] PCP - General 12/21/16 Atif Fl[place], [place] [address] [address] Physical Therapist Physical Therapy 04/22/21
--- OUTSIDE RECORDS SUMMARY | 2025-02-04 10:28 | XMS_ITS | Referral Summary ---
Author Organization [facility] Healthcare Address [address] [place] [address] Care Team Providers Care Circus Laborer Name Role Phone Redd Melendrez MD Primary Care Provider Atif Florentino DPT Unavailable [phone] Encounters Date Type Department Care Team Description 01/14/2025 11:30 AM CDT Office Visit [facility] Orthopaedic Surgery [facility] [address]th [place] [address] [place] [address] Yvon Fajardo MD Trigger index finger of left hand (Primary Dx); Trigger ring finger of right hand 01/06/2025 2:43 PM CDT - 01/06/2025 11:59 PM CDT Hospital Encounter [facility] [address] [place] [id number] Discharge Disposition: Discharge to home or self care 01/06/2025 Results Follow-Up [facility] 1 [facility] [place] [address] Emil Butcher MD 01/06/2025 11:00 AM CDT Office Visit [facility] Cardiology [facility] 8th [place] [address] [place] [phone] Emil Butcher MD Heart abnormality (Primary Dx); Primary hypertension; Diabetes mellitus (HCC); Obesity; Dyslipidemia 11/08/2024 Telephone [facility] Cardiology [address] [facility] 8th [place] [address] [place] [address] Anila Roberts New Patient from [...] 81 mL (81 mg total) by mouth porcelain buildup assistant before breakfast 10/16/19 11 Active icosapent ethyL (VASCEPA) 1 gram capsuleIndications :hypertriglyceride randell Take 2 capsules (2 g total) by mouth 2 (two) times a day 06/17/20 20 Active multivitamin capsuleIndications :Vitamin Deficiency Prevention Take 1 capsule by mouth porcelain buildup assistant before breakfast Active Janumet XR 100-1,000 mg [...] 1 tablet (20 mg total) by mouth porcelain buildup assistant before breakfast 05/02/20 025 Discontin ued(Thera py completed ) FreeStyle [...] (08/01/2022): Added automatically from request for surgery [id number] Subacromial bursitis of right shoulder joint Overview (08/01/2022): Added automatically from request for surgery [id number] Traumatic incomplete tear of right rotator cuff 08/01/2022 Overview (08/01/2022): Added automatically from request for surgery [id number] History of colon polyps 05/28/2021 Overview (05/28/2021): Added automatically from request for surgery [id number] Screening for malignant neoplasm of colon 2020 Overview (05/28/2021): Added automatically from request for surgery [id number] Osteoarthritis of left knee 01/02/2018 Osteoarthritis of [...] on file Legal Sex Male 10:11 PM MARKETING SUMMER INTERN Gender Identity Male 06/03/2019 6:56 AM CDT Sexual Orientation Choose not to disclose 2021 10:22 AM MARKETING SUMMER INTERN Last Filed Vital Signs Vital Sign Reading [...] on file Medical Devices Implanted Type Area Office Machine Service Supervisor Device Identifier Shelf Expiration Date Model / Serial / Lot [employer] 6197-9-010 Simplex P Full Dose Radiopaque Preblend Cement Bone Tobramycin - [id number] Implanted:Qty: 1 on 05/04/2018 by Jericho Henderson MD at [facility] [employer] [id number] 06/15/2019 6197-9-01 0 / / [employer] 6191-1-010 Simplex P Radiopaque Full Dose Cement Bone Sterile - [id number] Implanted:Qty: 1 on 05/04/2018 by Jericho Henderson MD at [facility] [employer] [id number] 07/15/2020 6191-1-01 0 / / [employer] [id number] Evolution Mp Keel Right 7 Standard Baseplate Tibial Nonporous - [id number] Implanted:Qty: 1 on 05/04/2018 by Jericho Henderson MD at [facility] [employer] 01/30/2026 [id number] / / [employer] [id number] Evolution Mp 12mm Cruciate Substitute Knee Right 7 Standard - [id number] Implanted:Qty: 1 on 05/04/2018 by Jericho Henderson MD at [facility] [employer] 10/15/2021 [id number] / / [employer] [id number] Evolution Mp Primary Cruciate Retaining Cruciate Sustain Knee - [id number] Implanted:Qty: 1 on 05/04/2018 by Jericho Henderson MD at [facility] [employer] 09/01/2025 [id number] / / [employer] [id number] 38mm 10mm 3 Peg Onlay Component Patellar All Poly - [id number] Implanted:Qty: 1 on 05/04/2018 by Jericho Henderson MD at [facility] [employer] 05/08/2025 [id number] / / [employer] Corkscrew Fiberwire 3.5mm 12mm Self Tap Eyelet Handle Braille Teacher [id number] - [id number] Implanted:Qty: 1 on 03/22/2023 by Blake [place] MD at [facility] Left: Arm [employer] 10/15/2027 [id number] / / [id number] [employer] Corkscre[employer] Fiberwire 3.5mm 12mm Self Tap Eyelet Handle Braille Teacher [id number] - [id number] Implanted:Qty: 1 on 03/22/2023 by Blake [place] MD at [facility] Left: Arm [employer] 10/15/2027 [id number] / / [id number] Procedures Procedure Name Priority Date/Time Associated Diagnosis Comments [place] INJECTION 1 TENDON SHEATH/LIGAMENT APONEUROSIS Routine 01/14/2025 11:30 AM CDT Trigger index finger of left hand Trigger ring finger of right hand [place] INJECTION 1 TENDON SHEATH/LIGAMENT APONEUROSIS Routine 01/14/2025 [...] Recently Relevant to Health Maintenance Results * [place] INJECTION 1 TENDON SHEATH/LIGAMENT APONEUROSIS, [place] INJECTION 1 TENDON SHEATH/LIGAMENT APONEUROSIS (01/14/2025 11:30 [...] Outside Reference (01/06/2025 2:43 PM CDT) Impressions [facility] - 01/06/2025 2:43 PM CDT These images are for Reference purposes only and have not been reviewed by [facility] Radiology. There will be no report generated by a [facility] Radiologist. Narrative [facility] - 01/06/2025 2:43 PM CDT EXAMINATION: Images For Reference Purposes Only Emil Butcher MD IMG NM PROCEDURES Final Result [facility] * ECG 12 lead (01/06/2025 11:22 AM CDT) Emil Butcher MD ECG ORDERABLES Edited Result - Final * (ABNORMAL) eGFR (07/20/2022 8:09 AM CDT) eGFR 82(L) 90 - 130 mL/min/1. 73 m2 [facility] Comment: Interpretive Data Reference Interval Normal >/= [...] of Race in Diagnosing Kidney Disease, JASN 202). The CKD-EPI equation should not be used for patients with unstable renal function and has not been validated in children and those over 70. Current interpretive data was last reviewed 2021. Blood 07/20/2022 8:09 AM CDT 07/20/2022 9:38 AM CDT Redd Melendrez MD LAB BLOOD ORDERABLES Final Re sult Performing Organization Address [facility] de Phone Number [facility] [place] [address] * (ABNORMAL) Hemoglobin A1c (07/20/2022 8:09 AM CDT) Hgb A1C 8.2(H) 4.0 - 5.6 % [facility] Estimated Average Glucose 189 mg/dL [facility] Comment: The ADA recommends reporting an [...] ORDERABLES Final Re sult Performing Organization Address City/[facility] Co de Phone Number [facility] [place] [address] * (ABNORMAL) Lipid panel (07/20/2022 8:09 AM CDT) Cholesterol 157 30 - 199 mg/dL [facility] Comment: Interpretive Data Ages < or [...] revised on 2018. Triglycerides 196(H) <=149 mg/dL [facility] Comment: Interpretive Data Ages < or [...] revised on 2018. HDL 33(L) >=40 mg/dL [facility] Comment: Interpretive Data Ages < or [...] on 2018. LDL, calculated 85 <=129 mg/dL [facility] Comment: Interpretive Data Ages < or [...] revised on 2018. Non-HDL Cholesterol 124 mg/dL [facility] Comment: Interpretive Data Ages < or [...] last revised on 2018. Chol/HDL ratio 5 [facility] Blood 07/20/2022 8:09 AM CDT 07/20/2022 9:38 AM CDT Redd Melendrez MD LAB BLOOD ORDERABLES Final Re sult [facility] [place] [address] * COLONOSCOPY (08/20/2021 11:29 AM CDT) Anatomical Region Laterality Modality Other Narrative Procedure Note Blake Gonzáles MD - 08/20/2021 11:29 AM CDT ENDOSCOPY LAB Patient Name: Geovani Cardona Procedure Date: 08/20/2021 11:29 AM Date of : 1955 Admit Type: Outpatient Age: 66 Gender: Male Attending MD: Blake Gonzáles M.D. Room: [facility] ENDOSCOPY ROOM 02 Note Status: Finalized Procedure: [...] The scope was passed under direct vision.The [id number] was introduced through the anusand advanced to the cecum, identified by appendiceal orifice and ileocecal valve. The colonoscopy was performed with ease. The patient tolerated the procedure well. The quality of the bowelpreparation was excellent. The quality of the bowel preparation was evaluated using the BBPS ([place] BowelPreparation Scale) with scores of: Right Colon [...] PM CDT) PSA-Total 0.20 <=5.40 ng/mL [facility] Comment: Interpretive Data AGE SEX REFERENCE INTERVAL 0 minutes-150 years Female None 0 minutes-49 years Male None 50-59 years Male 0-3.90 60-69 years Male 0-5.40 70-79 years Male 0-6.20 80-150 years Male 0-6.20 Current interpretive data last revised 2018. Blood 06/07/2021 5:05 PM CDT 06/07/2021 5:16 PM CDT us Redd Melendrez MD LAB BLOOD ORDERABLES Final Re sult [facility] Department [place] [address] from Last 3 Months or Most Recently Relevant to Health Maintenance Insurance CIGNA MEDICARE CIGNA MEDICARE MEDICARE [facility] [employer] Address: [facility] [id number] [place] [address] [facility]ICARE [facility] Advance Directives For more information, please contact: [phone] * Full Code (Latest Code Status on File) Date Activated Date Inactivated Comments 08/20/2021 10:11 AM 08/20/2021 4:54 PM * Full Code Date Activated Date Inactivated Comments 05/08/2018 7:48 PM 08/20/2021 10:01 AM * Full Code Date Activated Date Inactivated Comments 05/04/2018 1:42 PM 05/05/2018 4:30 PM Care Teams Circus Laborer Relationship Specialty Start Date End Date Redd Melendrez MD [address] [facility] [address] [place] [address] PCP - General 12/21/16 Atif Florentino DPT [address] [facility] [address] [place] [address] Physical Therapist Physical Therapy 04/22/21
[2025-02-04 10:35] LABS: Basophils Absolute Auto 0.1 K/mm3 (0.0-0.1); Basophils Percent Auto 0.6 % (0.2-1.2); Eosinophils Absolute Auto 0.2 K/mm3 (0-0.3); Eosinophils Percent Auto 2.4 % (0-4.4); Hematocrit 47.2 % (42.0-52.0); Hemoglobin 15.8 g/dL (14.0-18.0); Immature Granulocyte Absolute 0.09 K/mm3 (0.00-0.031); Immature Granulocyte Percent A 0.9 % (0-0.5); Lymphocytes Absolute Auto 0.83 K/mm3 (0.9-3.2); Lymphocytes Percent Auto 8.5 % (18.3-44.2); Mean Corpuscular HGB Conc 33.5 g/dl (32-36); Mean Corpuscular Hemoglobin 30.1 pg (26-34); Mean Corpuscular Volume 89.9 fl (80-100); Monocytes Absolute Auto 0.9 K/mm3 (0.1-0.6); Monocytes Percent Auto 9.3 % (2.6-8.5); Neutrophils Absolute Auto 7.7 K/mm3 (1.3-6.7); Neutrophils Percent Auto 78.3 % (45.5-73.1); Platelet Count Result 254 k/mm3 (150-375); Red Blood Count 5.25 M/mm3 (4.6-6.20); Red Cell Distribution Width 13.2 % (11.5-14.5); White Blood Count 9.8 K/mm3 (4.5-10.0)
--- OUTSIDE RECORDS SUMMARY | 2025-02-04 10:35 | XMS_ITS | Clinical Summary ---
Author Organization [facility] Address [address] [place] [address] Care Team Providers Care Director Drug Safety Name Role Phone Redd Aguero MD Primary Care Provider [phone] Encounters Date Type Department Care Team Description 11/12/[address] [facility] [address], [address] [phone] Lita Brown RN Results (CT Heart Screen Calcium Score) 11/07/2024 3:06 PM PARACHUTE MENDER - 11/07/2024 11:59 PM PARACHUTE MENDER Hospital Encounter [facility] [place] [address] [address] Redd Aguero MD Discharge Disposition: Home or Self Care (Routine Discharge) 11/07/2024 Travel from Last 3 Months Social History Tobacco Use Types Packs/Day Years Used Date Smoking Tobacco: Never Assessed Sex and Gender Information Value Date Recorded Sex Assigned at Male 11/07/2024 3:00 PM PARACHUTE MENDER Legal Sex Male 12:29 PM PARACHUTE MENDER Gender Identity Not on file Sexual Orientation [...] or 60+ Years Completed 05/26/2023 Pneumococcal Vaccine: 50+ Years Completed 08/25/2023 Meningococcal B Vaccine Aged [...] CALCIUM SCORE PROMO Routine 11/07/2024 3:30 PM PARACHUTE MENDER Essential (primary) hypertension Mixed hyperlipidemia Type 2 diabetes mellitus without complications ([facility]) from Last 3 Months Results * CT HEART SCREEN CALCIUM SCORE (11/07/2024 3:30 PM PARACHUTE MENDER) Anatomical Region Laterality Modality Chest Computed Tomogra phy Impressions 11/07/2024 3:41 PM PARACHUTE MENDER =====IMPRESSION:===== Total Score: 1037 Extensive plaque, high risk, high likelihood of significant stenosis (>50%). Ordered By: REDD AGUERO Interpreted By: Lyle Loza MD, 11/07/2024 3:41 PM Narrative 11/07/2024 3:41 PM PARACHUTE MENDER [facility] [address] [place], [place] [address] EXAMINATION: Multislice Helical CT Coronary Calcium Scoring [...] Calcium score guidelines: Total Score* Calcium Plaque [place] *Risk *Probability of significant CAD 0 No [...] Final from Last 3 Months Insurance [address] [id number] [facility] MEDICARE Care Teams Director Drug Safety Relationship Specialty Start Date End Date Redd Aguero MD [address] [place] [address] PCP - General INTERNAL MEDICINE 10/29/24
== END 2025-02-04 09:34 | disposition home or self-care (01) ==
PROVIDERS: PCP Internal Medicine; Visit Provider Internal Medicine
DX: R05.9 Cough, unspecified (principal); R09.81 Nasal congestion; R53.83 Other fatigue
CPT/HCPCS: 36415; 70220; 85025

== ENCOUNTER 2025-02-10 14:29 | Outpatient (CLI) | payer MEDICARE, SELFPAY ==
--- NOTE | ~2025-02-10 | CT_ITS ---
CT sinus wo con Ordering provider: Redd Melendrez MD History: . J32.9 - Chronic sinusitis, unspecified . Comparison: None. Technique: Thin slice Scans CT of the paranasal sinuses was performed with coronal and sagittal refor matted images. No IV contrast. . Automated exposure control and iterative reconstruction technique w ere employed. The dose-length product was 209.09 mGy-cm. Findings: NASAL SEPTUM: midline. OSTEOMEATAL UNITS: Bilaterally patent. NASAL TURBINATES AND NASOPHARYNX: Normal. PARANASAL SINUSES: Bilateral maxillary and ethmoid sinus disease. Well aerated. VISUALIZED MASTOIDS: Normal as visualized. BONES: Normal. SUPERFICIAL SOFT TISSUES/VISUALIZED BRAIN PARENCHYMA: Normal. IMPRESSION: Bilateral maxillary and ethmoid sinus disease. Reviewed, dictated and finalized at location A.
--- OUTSIDE RECORDS SUMMARY | 2025-02-10 16:40 | XMS_ITS | Referral Summary ---
Author Organization [facility] Healthcare Address [address] [place] [address] Care Team Providers Care Industrial Conveyor Belt Repairer Name Role Phone Redd Melendrez MD Primary Care Provider [phone] Atif Florentino DPT Unavailable [phone] Encounters Date Type Department Care Team Description 01/14/2025 11:30 AM CDT Office Visit [facility] Orthopaedic Surgery [facility] 6th [place] [address] [place] [address] Yvon Fajardo MD Trigger index finger of left hand (Primary Dx); Trigger ring finger of right hand 01/06/2025 2:43 PM CDT - 01/06/2025 11:59 PM CDT Hospital Encounter [facility] [address] [place] [address] Discharge Disposition: Discharge to home or self care 01/06/2025 Results Follow-Up [facility] [address] [facility] [place] [address] Emil Butcher MD 01/06/2025 11:00 AM CDT Office Visit [facility] Cardiology [facility] 8th [place] [address] [place] [id number] Emil Butcher MD Heart abnormality (Primary Dx); Primary hypertension; Diabetes mellitus (HCC); Obesity; Dyslipidemia from Last 3 Months Allergies Active Allergy Reactions Criticality Noted Date Comments Tetracyclines Rash Medium 03/29/2018 Medications fenofibrate choline (TRILIPIX) 135 mg capsuleIndicati ons:hypercholes terolemia Take 1 capsule (135 mg total) by mouth every morning 8 Active glimepiride (AMARYL) 2 mg tabletIndicatio ns:type 2 diabetes mellitus Take 1-2 tablets (2-4 mg total) by mouth 2 (two) times a day 2 tablet in am 1 tablet in PM 8 Active lisinopril (PRINIVIL,ZESTR IL) 20 mg tabletIndicatio ns:hypertension Take 1 tablet (20 mg total) by mouth every morning 8 Active omeprazole (PriLOSEC) 20 mg capsuleIndicati ons:Treatment of Non-Bleeding Gastric Disorder Take 1 capsule (20 mg total) by mouth 2 (two) times a day 8 Active aspirin 81 MG oral suspensionIndic ations:heart health Take 81 mL (81 mg total) by mouth management information systems director before breakfast 1 Active icosapent ethyL (VASCEPA) 1 gram capsuleIndicati ons:hypertrigly ceridemia Take 2 capsules (2 g total) by mouth 2 (two) times a day 0 Active multivitamin capsuleIndicati ons:Vitamin Deficiency Prevention Take 1 capsule by mouth management information systems director before breakfast Active Janumet XR 100-1,000 mg tablet, ER multiphase 24 hrIndications:t ype 2 diabetes mellitus Take 1 tablet by mouth every morning 2 Active acetaminophen (TYLENOL) 500 mg tablet Take 2 tablets (1,000 mg total) by mouth every 6 (six) hours as needed for pain Active ibuprofen (ADVIL,MOTRIN) 200 mg tab/cap Take 2 tablet/capsule (400 mg total) by mouth every 6 (six) hours as needed for pain Active Farxiga 10 mg tabletIndicatio ns:type 2 diabetes mellitus Take 1 tablet (10 mg total) by mouth every morning 3 Active Ozempic 2 mg/dose (8 mg/3 mL) pen injector injectionIndica tions:type 2 diabetes mellitus Inject 2 mg under [...] sildenafiL (VIAGRA) 100 mg tablet 4 Active tadalafiL (CIALIS) 5 mg tablet Take 1 tablet (5 mg total) by mouth daily 5 Active terbinafine (LamiSIL) 250 mg tablet Take 1 tablet (250 mg total) by mouth daily 5 Active Hospital, Clinic, or Other Facility Administered Medication [...] (08/01/2022): Added automatically from request for surgery [id number] Subacromial bursitis of right shoulder joint Overview (08/01/2022): Added automatically from request for surgery [id number] Traumatic incomplete tear of right rotator cuff 08/01/2022 Overview (08/01/2022): Added automatically from request for surgery [id number] History of colon polyps 05/28/2021 Overview (05/28/2021): Added automatically from request for surgery [id number] Screening for malignant neoplasm of colon 2020 Overview (05/28/2021): Added automatically from request for surgery [id number] Osteoarthritis of left knee 01/02/2018 Osteoarthritis of [...] on file Legal Sex Male 10:11 PM CLAY PROCESSING LABOURER Gender Identity Male 06/03/2019 6:56 AM CDT Sexual Orientation Choose not to disclose 2021 10:22 AM CLAY PROCESSING LABOURER Last Filed Vital Signs Vital Sign Reading [...] on file Medical Devices Implanted Type Area Vacuum Plastic Forming Machine Operator Device Identifier Shelf Expiration Date Model / Serial / Lot [employer] 6197-9-010 Simplex P Full Dose Radiopaque Preblend Cement Bone Tobramycin - [id number] Implanted:Qty: 1 on 05/04/2018 by Jericho Henderson MD at [facility] [employer] [id number] 06/15/2019 6197-9-01 0 / / [employer] 6191-1-010 Simplex P Radiopaque Full Dose Cement Bone Sterile - [id number] Implanted:Qty: 1 on 05/04/2018 by Jericho Henderson MD at [facility] [employer] [id number] 07/15/2020 6191-1-01 0 / / [employer] [id number] Evolution Mp Keel Right 7 Standard Baseplate Tibial Nonporous - [id number] Implanted:Qty: 1 on 05/04/2018 by Jericho Henderson MD at [facility] [employer] 01/30/2026 [id number] / / [employer] [id number] Evolution Mp 12mm Cruciate Substitute Knee Right 7 Standard - [id number] Implanted:Qty: 1 on 05/04/2018 by Jericho Henderson MD at [facility] 10/15/2021 [id number] / / [employer] [id number] Evolution Mp Primary Cruciate Retaining Cruciate Sustain Knee - [id number] Implanted:Qty: 1 on 05/04/2018 by Jericho Henderson MD at [facility] [employer] 09/01/2025 [id number] / / [employer] [id number] Advance 38mm 10mm 3 Peg Onlay Component Patellar All Poly - [id number] Implanted:Qty: 1 on 05/04/2018 by Jericho Henderson MD at [facility] 05/08/2025 [id number] / / [employer] Corkscrew Fiberwire 3.5mm 12mm Self Tap Eyelet Handle Property Underwriter Ar-[id number] - [id number] Implanted:Qty: 1 on 03/22/2023 by Blake Jackson MD at [facility] [place] Left: Arm [employer] 10/15/2027 [id number] / / [id number] [employer] Corkscrew Fiberwire 3.5mm 12mm Self Tap Eyelet Handle Property Underwriter Ar-5sf - [id number] Implanted:Qty: 1 on 03/22/2023 by Blake Jackson MD at [facility] [place] Left: Arm [employer] 10/15/2027 [id number] / / [id number] Procedures Procedure Name Priority Date/Time Associated Diagnosis Comments [place] INJECTION 1 TENDON SHEATH/LIGAMENT APONEUROSIS Routine 01/14/2025 11:30 AM CDT Trigger index finger of left hand Trigger ring finger of right hand [place] INJECTION 1 TENDON SHEATH/LIGAMENT APONEUROSIS Routine 01/14/2025 [...] Recently Relevant to Health Maintenance Results * [place] INJECTION 1 TENDON SHEATH/LIGAMENT APONEUROSIS, [place] INJECTION 1 TENDON SHEATH/LIGAMENT APONEUROSIS (01/14/2025 11:30 [...] Outside Reference (01/06/2025 2:43 PM CDT) Impressions ENMANUEL_EMI - 01/06/2025 2:43 PM CDT These images are for Reference purposes only and have not been reviewed by [facility] Radiology. There will be no report generated by a [facility] Radiologist. Narrative [facility] - 01/06/2025 2:43 PM CDT EXAMINATION: Images For Reference Purposes Only Emil Butcher MD IMG NM PROCEDURES Final Result [facility]_P[facility] * ECG 12 lead (01/06/2025 11:22 AM CDT) Emil Butcher MD ECG ORDERABLES Edited Result - Final * (ABNORMAL) eGFR (07/20/2022 8:09 AM CDT) eGFR 82(L) 90 - 130 mL/min/1. 73 m2 [facility] Comment: Interpretive Data Reference Interval Normal [...] ORDERABLES Final Re sult Performing Organization Address [facility] de Phone Number [facility] Department [place] [address] * (ABNORMAL) Hemoglobin A1c (07/20/2022 8:09 AM CDT) Hgb A1C 8.2(H) 4.0 - 5.6 % [facility] Estimated Average Glucose 189 mg/dL [facility] Comment: The ADA recommends reporting an [...] ORDERABLES Final Re sult Performing Organization Address [facility] Co de Phone Number [facility] Department [place] [address] * (ABNORMAL) Lipid panel (07/20/2022 8:09 AM CDT) Cholesterol 157 30 - 199 mg/dL [facility] Comment: Interpretive Data Ages < or [...] on 2018. Triglycerides 196(H) <=149 mg/dL [facility] Comment: Interpretive Data Ages < or [...] revised on 2018. HDL 33(L) >=40 mg/dL [facility] Comment: Interpretive Data Ages < or [...] 2018. LDL, calculated 85 <=129 mg/dL [facility] Comment: Interpretive Data Ages < or [...] revised on 2018. Non-HDL Cholesterol 124 mg/dL [facility] Comment: Interpretive Data Ages < or [...] LAB BLOOD ORDERABLES Final Re sult [facility] Department [place] [address] * COLONOSCOPY (08/20/2021 11:29 AM CDT) Anatomical Region Laterality Modality Other Narrative Procedure Note Blake Gonzáles MD - 08/20/2021 11:29 AM CDT ENDOSCOPY LAB Patient Name: Geovani Quintero Procedure Date: 08/20/2021 11:29 AM Date of : 1955 Admit Type: Outpatient Age: 66 Gender: Male Attending MD: Blake Gonzáles M.D. Room: [facility] ENDOSCOPY ROOM 02 Note Status: Finalized Procedure: [...] The scope was passed under direct vision.The [id number] was introduced through the anusand advanced to the cecum, identified by appendiceal orifice and ileocecal valve. The colonoscopy was performed with ease. The patient tolerated the procedure well. The quality of the bowelpreparation was excellent. The quality of the bowel preparation was evaluated using the BBPS ([place] BowelPreparation Scale) with scores of: Right Colon [...] 5 years for surveillance. Electronically signed by Dr.Blake Mutch, M.D. Blake Gonzáles M.D. 08/20/2021 12:12:16 PM Number of Addenda: 0 Note Initiated On: 08/20/2021 11:29 AM us Blake Gonzáles MD ENDOSCOPY PROCEDURES Final R esult * PSA diagnostic (06/07/2021 5:05 PM CDT) PSA-Total 0.20 <=5.40 ng/mL [facility] Comment: Interpretive Data AGE SEX REFERENCE INTERVAL 0 minutes-150 years Female None 0 minutes-49 years Male None 50-59 years Male 0-3.90 60-69 years Male 0-5.40 70-79 years Male 0-6.20 80-150 years Male 0-6.20 Current interpretive data last revised 2018. Blood 06/07/2021 5:05 PM CDT 06/07/2021 5:16 PM CDT us Redd Melendrez MD LAB BLOOD ORDERABLES Final Re sult [facility] One [facility] Department [place] [address] from Last 3 Months or Most Recently Relevant to Health Maintenance Insurance [facility] [employer] Address: [facility] [address] [place] [address] MEDICARE [facility] [employer] Address: [facility] [id number] [place] [address] MEDICARE MEDICARE [facility] [employer] Address: [facility] [address] [place] [address] MEDICARE [facility] Advance Directives For more information, please contact: [phone] * Full Code (Latest Code Status on File) Date Activated Date Inactivated Comments 08/20/2021 10:11 AM 08/20/2021 4:54 PM * Full Code Date Activated Date Inactivated Comments 05/08/2018 7:48 PM 08/20/2021 10:01 AM * Full Code Date Activated Date Inactivated Comments 05/04/2018 1:42 PM 05/05/2018 4:30 PM Care Teams Industrial Conveyor Belt Repairer Relationship Specialty Start Date End Date Redd Melendrez MD [address] [place] [address] PCP - General 12/21/16 Atif Florentino, LIZBETHT [address] [address] Physical Therapist Physical Therapy 04/22/21
--- OUTSIDE RECORDS SUMMARY | 2025-02-10 16:40 | XMS_ITS | Clinical Summary ---
Author Organization [facility] Address [address] [place] [id number] Care Team Providers Care Dumper Bailer Operator Name Role Phone Redd Melendrez MD Primary Care Provider [phone] Encounters Date Type Department Care Team Description 11/12/2024 [facility] [address] Lita Brown RN Results (CT Heart Screen Calcium Score) from Last 3 Months Social History Tobacco Use Types Packs/Day Years Used Date Smoking Tobacco: Never Assessed Sex and Gender Information Value Date Recorded Sex Assigned at Male 11/07/2024 3:00 PM CODING VALIDATOR Legal Sex Male 12:29 PM CODING VALIDATOR Gender Identity Not on file Sexual Orientation [...] on patient's age to complete this topic Insurance [facility] MEDICARE Care Teams Dumper Bailer Operator Relationship Specialty Start Date End Date Redd Melendrez MD [address] [place] [id number] PCP - General INTERNAL MEDICINE 10/29/24
--- OUTSIDE RECORDS SUMMARY | 2025-02-10 16:40 | XMS_ITS | Clinical Summary ---
Author Organization [facility] Healthcare Address [address] [place] [address] Care Team Providers Care Cavalry Officer Name Role Phone Redd Melendrez MD Primary Care Provider [phone] Atif Florentino DPT Unavailable [phone] Allergies Active Allergy Reactions Criticality Noted Date [...] 81 mL (81 mg total) by mouth journal entry audit clerk before breakfast 1 Active icosapent ethyL (VASCEPA) 1 gram capsuleIndicati ons:hypertrigly ceridemia Take 2 capsules (2 g total) by mouth 2 (two) times a day 0 Active multivitamin capsuleIndicati ons:Vitamin Deficiency Prevention Take 1 capsule by mouth journal entry audit clerk before breakfast Active Janumet XR 100-1,000 mg [...] (08/01/2022): Added automatically from request for surgery [id number] Subacromial bursitis of right shoulder joint Overview (08/01/2022): Added automatically from request for surgery [id number] Traumatic incomplete tear of right rotator cuff 08/01/2022 Overview (08/01/2022): Added automatically from request for surgery [id number] History of colon polyps 05/28/2021 Overview (05/28/2021): Added automatically from request for surgery [id number] Screening for malignant neoplasm of colon 2020 Overview (05/28/2021): Added automatically from request for surgery [id number] Osteoarthritis of left knee 01/02/2018 Osteoarthritis of right knee 11/07/2017 Abscess of axilla 12/15/2016 Knee pain 06/29/2015 Arthritis 05/08/2012 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 Hypertension 05/08/2012 Hiatal hernia 05/08/2012 Dizziness 05/08/2012 Cervical radiculopathy 04/25/2012 Diabetes mellitus 04/25/2012 Herniated cervical intervertebral disc 2 Sebaceous cyst 07/28/2011 Encounters Date Type Department Care Team Description 01/14/2025 11:30 AM CDT Office Visit [facility] Orthopaedic Surgery [address] [facility] 6th [place] [address] [place] [address] Yvon Fajardo MD Trigger index finger of left hand (Primary Dx); Trigger ring finger of right hand 01/06/2025 2:43 PM CDT - 01/06/2025 11:59 PM CDT Hospital Encounter [facility] [address] [place] [address] Discharge Disposition: Discharge to home or self care 01/06/2025 11:00 AM CDT Office Visit [facility] Cardiology [address] [facility] 8th [place] [address] [place] [address] Emil Butcher MD Heart abnormality (Primary Dx); Primary hypertension; Diabetes mellitus (HCC); Obesity; Dyslipidemia 01/06/2025 Results Follow-Up [facility] [address] [place] [address] Emil Butcher MD from Last 3 Months Immunizations Immunization Administration Dates Next Due Influenza, Unspecified 10/14/2013,08/27/2012 Pfizer SARS-CoV-2 Monovalent Vaccination (12+ Yrs) PURPLE 08/07/2021 ZOSTER Recombinant 03/31/2023,12/23/2022 Surgical History Surgery Date Site/Laterality Comments COLONOSCOPY CYST REMOVAL 10/16/2016 - 10/15/2017 sebacious cyst left chest [place] ALEGRIA W/O FACETEC FORAMOT/DSC 10/17 VRT SGM CRV 10/16/2008 - 10/15/2009 Laminectomy [...] Medical History Date Comments Diabetes mellitus (HCC) 1999 not insu olivia dependent Hypertension 1999 HEMANTH (obstructive sleep apnea) us ing cpap Hiatal hernia not bothering pt at this time Low testosterone Hyperlipidemia GERD (gastroesophageal reflu x disease) 40 plus years ago. 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 Gender Identity Male 06/03/2019 6:56 AM CDT Sexual Orientation Choose not to disclose 2021 10:22 AM COMPUTER BUILDER Obstetrics History Last Filed Vital Signs Vital [...] 12/30/2021, 12/31/19 22 Hemoglobin A1C 01/18/2023 07/20/2022, 0402/2022, 04/23/2021, Additional history exists Lipid Panel 07/20/2023 [...] 03/31/2023, 12/23/2022 Medical Devices Implanted Type Area Crtts Device Identifier Shelf Expiration Date Model / Serial / Lot [employer] 6197-9-010 Simplex P Full Dose Radiopaque Preblend Cement Bone Tobramycin - [id number] Implanted:Qty: 1 on 05/04/2018 by Jericho Henderson MD at [facility] [employer] [id number] 06/15/2019 6197-9-01 0 / / [employer] 6191-1-010 Simplex P Radiopaque Full Dose Cement Bone Sterile - [id number] Implanted:Qty: 1 on 05/04/2018 by Jericho Henderson MD at [facility] [employer] [id number] 07/15/2020 6191-1-01 0 / / [employer] [id number] Evolution Mp Keel Right 7 Standard Baseplate Tibial Nonporous - [id number] Implanted:Qty: 1 on 05/04/2018 by Jericho Henderson MD at [facility] [employer] 01/30/2026 [id number] / / [employer] [id number] Evolution Mp 12mm Cruciate Substitute Knee Right 7 Standard - [id number] Implanted:Qty: 1 [facility]/04/[facility] 10/15/2021 [id number] / / [employer] [id number] Evolution Mp Primary Cruciate Retaining Cruciate Sustain Knee - [id number] Implanted:Qty: 1 on 05/04/2018 [facility] 09/01/2025 [id number] / / [employer] [id number] 38mm 10mm 3 Peg Onlay Component Patellar All Poly - [id number] Implanted:Qty: 1 on 05/04/2018 by Jericho Henderson MD at [facility] 05/08/2025 [id number] / / [employer] Corkscrew Fiberwire 3.5mm 12mm Self Tap Eyelet Handle Supply Chain Development Manager [id number] - [id number] Implanted:Qty: 1 on 03/22/2023 by Blake Jackson MD at [facility] Left: Arm [employer] 10/15/2027 [id number] / / [id number] [employer] Fiberwire 3.5mm 12mm Self Tap Eyelet Handle Supply Chain Development Manager Ar-5sf - [id number] Implanted:Qty: 1 on 03/22/2023 by Blake Jackson MD at [facility] Orthopedic [place] Left: Arm [employer] 10/15/2027 [id number] / / [id number] Procedures Procedure Name Priority Date/Time Associated Diagnosis Comments [place] INJECTION 1 TENDON SHEATH/LIGAMENT APONEUROSIS Routine 01/14/2025 11:30 AM CDT Trigger index finger of left hand Trigger ring finger of right hand [place] INJECTION 1 TENDON SHEATH/LIGAMENT APONEUROSIS Routine 01/14/2025 [...] Recently Relevant to Health Maintenance Results * [place] INJECTION 1 TENDON SHEATH/LIGAMENT APONEUROSIS, [place] INJECTION 1 TENDON SHEATH/LIGAMENT APONEUROSIS (01/14/2025 11:30 [...] %); 40 mg methylPREDNISolone acetate 40 mg/mL us Yvon Fajardo MD IN CLINIC/BEDSIDE ORDERABLES Final Result * NM Outside Reference (01/06/2025 2:43 PM CDT) Impressions [facility] - 01/06/2025 2:43 PM CDT These images are for Reference purposes only and have not been reviewed by [facility] Radiology. There will be no report generated by a [facility] Radiologist. Narrative [facility] - 01/06/2025 2:43 PM CDT EXAMINATION: Images For Reference Purposes Only us Emil Butcher MD IMG NM PROCEDURES Final Result RAD_PACS[facility] * ECG 12 lead (01/06/2025 11:22 AM CDT) Emil Butcher MD ECG ORDERABLES Edited Result - Final * (ABNORMAL) eGFR (07/20/2022 8:09 AM CDT) eGFR 82(L) 90 - 130 mL/min/1. 73 m2 [facility] Comment: Interpretive Data Reference Interval [...] MD LAB BLOOD ORDERABLES Final Re sult [facility] [place] [address] * (ABNORMAL) Hemoglobin A1c (07/20/2022 8:09 AM CDT) Hgb A1C 8.2(H) 4.0 - 5.6 % [facility] Estimated Average Glucose 189 mg/dL [facility] Comment: The ADA recommends reporting an [...] MD LAB BLOOD ORDERABLES Final Re sult [facility] [place] [address] * (ABNORMAL) Lipid panel (07/20/2022 8:09 AM CDT) Cholesterol 157 30 - 199 mg/dL [facility] Comment: Interpretive Data Ages < [...] revised on 2018. Triglycerides 196(H) <=149 mg/dL [facility] Comment: Interpretive Data Ages < [...] revised on 2018. HDL 33(L) >=40 mg/dL [facility] Comment: Interpretive Data Ages < [...] on 2018. LDL, calculated 85 <=129 mg/dL [facility] Comment: Interpretive Data Ages < [...] revised on 2018. Non-HDL Cholesterol 124 mg/dL [facility] Comment: Interpretive Data Ages < [...] last revised on 2018. Chol/HDL ratio 5 [facility] Blood 07/20/2022 8:09 AM CDT 07/20/2022 9:38 AM CDT Redd Melendrez MD LAB BLOOD ORDERABLES Final Re sult [facility] [place] [address] * COLONOSCOPY (08/20/2021 11:29 AM CDT) Anatomical Region Laterality Modality Other Narrative Procedure Note Blake Gonzáles MD - 08/20/2021 11:29 AM CDT ENDOSCOPY LAB Patient Name: Geovani Ingrid Procedure Date: 08/20/2021 11:29 AM Date of : 1955 Admit Type: Outpatient Age: 66 Gender: Male Attending MD: Blake Gonzáles M.D. Room: [facility] ENDOSCOPY ROOM 02 Note Status: Finalized [...] The scope was passed under direct vision.The [id number] was introduced through the anusand advanced to the cecum, identified by appendiceal orifice and ileocecal valve. The colonoscopy was performed with ease. The patient tolerated the procedure well. The quality of the bowelpreparation was excellent. The quality of the bowel preparation was evaluated using the BBPS ([place] BowelPreparation Scale) with scores of: Right Colon [...] PM CDT) PSA-Total 0.20 <=5.40 ng/mL [facility] Comment: Interpretive Data AGE SEX REFERENCE INTERVAL 0 minutes-150 years Female None 0 minutes-49 years Male None 50-59 years Male 0-3.90 60-69 years Male 0-5.40 70-79 years Male 0-6.20 80-150 years Male 0-6.20 Current interpretive data last revised 2018. Blood 06/07/2021 5:05 PM CDT 06/07/2021 5:16 PM CDT Redd Melendrez MD LAB BLOOD ORDERABLES Final Re sult [facility] [place] [address] from Last 3 Months or Most Recently Relevant to Health Maintenance Insurance [facility] [employer] Address: [facility] [address] [place] [address] MEDICARE [facility] Address: [address] [address] [place] [address] [employer] [facility] [employer] Address: [facility] [address] [place] [address] MEDICARE MEDICARE [facility] [employer] Address: [address] [place] [address] [address] [place] [address] MEDICARE [facility] Member Subscriber Plan / Payer ( fective 2023-Present) Name:Geovani Cardona Relation to Subscriber:Self Name:Geovani Cardona Payer ID:[id number] Group ID:Not on file Type:[facility] Address: [address] [place] [address] Advance Directives For more information, please contact: [phone] * Full Code (Latest Code Status on File) Date Activated Date Inactivated Comments 08/20/2021 10:11 AM 08/20/2021 4:54 PM * Full Code Date Activated Date Inactivated Comments 05/08/2018 7:48 PM 08/20/2021 10:01 AM * Full Code Date Activated Date Inactivated Comments 05/04/2018 1:42 PM 05/05/2018 4:30 PM Care Teams Cavalry Officer Relationship Specialty Start Date End Date Redd Melendrez MD [address] [place] [address] PCP - General 12/21/16 Atif Florentino DPT [address] [facility] [address] [place] [address] Physical Therapist Physical Therapy 04/22/21
--- OUTSIDE RECORDS SUMMARY | 2025-02-10 16:40 | XMS_ITS | Encounter Summary ---
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 Gender Identity Male 06/03/2019 6:56 AM CDT Sexual Orientation Choose not to disclose 2021 10:22 AM SPECIAL PROJECTS COORDINATOR documented as of this encounter Plan of Treatment Not on file documented as of this encounter Visit Diagnoses Not on filedocumented in this encounter Care Teams Building Components Designer Relationship Specialty Start Date End Date Redd Melendrez MD [address] [place] [address] PCP - General 12/21/16 Atif Florentino DPT [address] [facility] [address] [place] [address] Physical Therapist Physical Therapy 04/22/21 documented as of this encounter
== END 2025-02-10 14:30 | disposition home or self-care (01) ==
PROVIDERS: PCP Internal Medicine; Visit Provider Internal Medicine
DX: J32.9 Chronic sinusitis, unspecified (principal); R05.9 Cough, unspecified; J34.89 Other specified disorders of nose and nasal sinuses; R51.9 Headache, unspecified
CPT/HCPCS: 70486